=== PATIENT | male | born 1985 | race Caucasian/White ===

== ENCOUNTER 2019-09-21 18:44 | Emergency (ER) | payer OTHER, SELFPAY ==
--- NOTE | ~2019-09-21 | CT_ITS ---
EXAMINATION: CT cervical spine wo con DATE: 09/21/2019 21:56 INDICATION: Transient alteration of awareness TECHNIQUE: Computed tomography (CT) of the cervical spine was performed without intravenous contrast. The dose-length product (DLP) was 446.93 mGy-cm. Automated exposure control and iterative reconstruc tion technique were employed. COMPARISON: None FINDINGS: There is no fracture, dislocation, or subluxation. The vertebral body heights, alignment, a nd intervertebral disc spaces are normal. The paravertebral soft tissues are unremarkable. The odonto id is intact. IMPRESSION: 1. Normal cervical spine. Reviewed, dictated and finalized at location A. IMPRESSION: 1. Normal cervical spine.
--- NOTE | ~2019-09-21 | CT_ITS ---
EXAMINATION: CT brain wo con INDICATION: Transient alteration of awareness COMPARISON: None TECHNIQUE: Standard unenhanced head CT. The dose-length product (DLP) was 605.33 mGy-cm. The mA was a djusted according to patient size. Iterative reconstruction technique was employed. FINDINGS: There is no intracranial hemorrhage, acute infarction, or abnormal mass lesion. The ventric les are normal. There is no abnormal mass effect or midline shift. The carrion-white matter differentiat ion is normal. The basal cisterns are patent. The orbits are normal. The paranasal sinuses, mastoids and calvarium are normal. IMPRESSION: 1. No acute intracranial abnormality. Reviewed, dictated and finalized at location A.
[2019-09-21 19:19] VITALS: BP 153/89; PULSE 115; RESP 19; TEMP 36.6; O2SAT 100
--- NOTE | 2019-09-21 19:22 | ECG_ITS ---
Measurements Intervals [place] Rate: 101 P: 54 MT: 148 QRS: 64 QRSD: 85 T: 44 QT: 327 QTc: 426 Interpretive Statements SINUS TACHYCARDIA MINIMAL Q WAVES- DIFFUSE LEADS BORDERLINE ECG Electronically Signed On 09-22-2019 7:32:52 CDT by Charles Haque D.O.
[2019-09-21 19:51] LABS: Basophils Percent Auto 0.4 % (0.2-1.2); Eosinophils Absolute Auto 0.3 K/mm3 (0-0.3); Eosinophils Percent Auto 3.2 % (0-4.4); Hematocrit 44.9 % (42.0-52.0); Hemoglobin 15.1 g/dL (14.0-18.0); Immature Granulocyte Absolute 0.02 K/mm3 (0.00-0.031); Immature Granulocyte Percent A 0.2 % (0-0.5); Lymphocytes Percent Auto 30.6 % (18.3-44.2); Mean Corpuscular HGB Conc 33.6 g/dl (32-36); Mean Corpuscular Hemoglobin 29.9 pg (26-34); Mean Corpuscular Volume 88.9 fl (80-100); Monocytes Absolute Auto 0.8 K/mm3 (0.1-0.6); Monocytes Percent Auto 8.4 % (2.6-8.5); Neutrophils Absolute Auto 5.2 K/mm3 (1.3-6.7); Neutrophils Percent Auto 57.2 % (45.5-73.1); Platelet Count Result 387 k/mm3 (150-375); Red Blood Count 5.05 M/mm3 (4.6-6.20); Red Cell Distribution Width 12.9 % (11.5-14.5); White Blood Count 9.2 K/mm3 (4.5-10.0)
[2019-09-21 19:55] LABS: Add Urine Microscopic? YES; Appearance Urine Clear (Clear); Bacteria Urine Trace /hpf; Bilirubin Urine Negative (Negative); Blood Urine Negative (Negative); Color Urine Yellow (Yellow); Glucose Urine UA Negative (Negative); Ketones Urine Negative (Negative); Leukocyte Esterase Ur Negative LEU/UL (Negative); Mucus Urine Few /lpf; Nitrate Urine Negative (Negative); Protein Urine 1+ mg/dL (Negative); RBC Urine 0-2 /hpf (0-2); Specific Grav Ur 1.031 (1.001-1.035); Squamous Epithelial Cell Urine Rare /hpf (Few); Urobilinogen Urine Negative mg/dL (<2.0); WBC Urine 0-3 /hpf
[2019-09-21 20:03] LABS: Blood Urea Nitrogen 14 mg/dL (9-20); Calcium 8.7 mg/dL (8.4-10.2); Carbon Dioxide 28 mmol/L (22-30); Chloride 103 mmol/L (98-107); Estimated CRCL calculation 99 ml/min; Estimated Glomerular Filt Rate > 60; Glucose 63 mg/dL (75-110); Sodium 140 mmol/L (137-145)
[2019-09-21 21:00] VITALS: BP 126/99; BP 139/90; BP 140/92; PULSE 102; PULSE 104; PULSE 105
--- NOTE | 2019-09-21 21:05 | PC.NURSE ---
pt presents to ER with c/o syncopal episodes yesterday. pt states he was at work yesterday when he started to feel over heated. pt reports he does not remember driving home. s/o at bedside, states pt came home and was not acting himself, eating foods he typically wouldn't. pt states he remembers going to the bathroom to shower but states he woke up on the floor, states it was not witnessed. pt aaox4, no neurological deficit noted, answering questions appropriately. pt c/o migraine, took Advil CAMP BOSS. ambulatory with steady gait.
--- NOTE | 2019-09-21 21:23 | ED.GENADULT ---
HPI - General Adult General Chief complaint: Syncope Stated complaint: SYNCOPE YESTERDAY Time Seen by Provider: 09/21/19 21:03 History of Present Illness HPI narrative: Patient is a 34 y/o male complaining of confusion and passing out last night. He states that he came back from work feeling confused. He went to bathroom and woke up on the floor. He states that he may be out for 2 hours hours. He has some mild headache currently but feels well otherwise. He denies any fever, chills, vomiting or any focal weakness/numbness. He denies drinking or using illicit drugs. Related Data Home Medications Medication Instructions Recorded Confirmed No Home Medications 09/21/19 09/21/19 Allergies Allergy/AdvReac Type Severity Reaction Status Date / Time No Known Allergies Allergy Verified 09/21/19 21:01 Review of Systems Constitutional: Constitutional: Denies chills, Denies fever(s), Denies headache(s) and Denies weakness Eyes: Eyes: Denies blurry vision ENT: Denies headache(s) and Denies neck pain Cardiovascular: Cardiovascular: Denies chest pain and Denies dyspnea Respiratory: Respiratory: Denies cough and Denies dyspnea Gastrointestinal: Gastrointestinal: Denies abdominal pain, Denies diarrhea, Denies nausea and Denies vomiting Genitourinary: Genitourinary: Denies hematuria and Denies dysuria Musculoskeletal: Musculoskeletal: Denies back pain and Denies neck pain Neurologic: Reports as per HPI, Reports headache(s), Denies focal weakness and Denies weakness PMF Social History Social History Gender identity (if verbalized by the patient): Male Exam Const: General: no acute distress and well developed Orientation/consciousness: oriented to person, oriented to place, oriented to time and patient oriented x3 HENMT: Head: normocephalic Ears: external ears normal General nose exam: Normal external nose present Eyes: General: appearance normal, both eyes and all related structures Conjunctivae: conjunctivae normal Neck: Neck: normal visual inspection and full ROM Chest: Chest palpation & inspection: normal inspection of the chest and no tenderness Resp: Effort & Inspection: normal respiratory effort Auscultation: clear to auscultation bilaterally Cardio: Rate: tachycardic Rhythm: regular rhythm GI: GI Palp: No abdominal tenderness and Yes Soft to palpation Skin: General skin exam: normal color and turgor normal Neuro: General: oriented to person, oriented to place, oriented to time and patient oriented x3 Cranial nerves: Yes CN's II-XII intact bilaterally Cognition (Neuro): normal cognition Speech: normal speech Motor exam (neuro): 5/5 motor strength present throughout Sensory Exam: normal sensation Coordination: [id number] test normal Extrem: General: normal to inspection, full ROM and no pedal edema Psych: Appearance: grossly normal Mental Status: mental status grossly normal Affect: normal affect Course Vital Signs Vital signs: Vital Signs Temperature 36.6 C 09/21/19 19:19 Pulse Rate 115 H 09/21/19 19:19 Respiratory Rate 19 09/21/19 19:19 Blood Pressure 153/89 H 09/21/19 19:19 Pulse Oximetry 100 09/21/19 19:19 Temperature 36.8 C 09/21/19 22:44 Pulse Rate 99 09/21/19 22:44 Respiratory Rate 18 09/21/19 22:44 Blood Pressure 115/71 09/21/19 22:44 Pulse Oximetry 98 09/21/19 22:44 Medical Decision Making Vital Signs Vital Signs: Vital Signs Temperature 36.6 C 09/21/19 19:19 Pulse Rate 115 H 09/21/19 19:19 Respiratory Rate 19 09/21/19 19:19 Blood Pressure 153/89 H 09/21/19 19:19 Pulse Oximetry 100 09/21/19 19:19 Temperature 36.8 C 09/21/19 22:44 Pulse Rate 99 09/21/19 22:44 Respiratory Rate 18 09/21/19 22:44 Blood Pressure 115/71 09/21/19 22:44 Pulse Oximetry 98 09/21/19 22:44 Lab Data Result diagrams: 09/21/19 19:28 09/21/19 19:28
[2019-09-21 21:53] LABS: Barbiturate Screen Urine Negative (Negative); Benzodiazepines Screen Urine Negative (Negative)
[2019-09-21 22:03] LABS: Cannabinoid Screen Urine Negative (Negative); Cocaine Screen Urine Negative (Negative); Methadone Screen Urine Negative (Negative); Opiate Screen Urine Negative (Negative); Phencyclidine Screen Urine Negative (Negative)
[2019-09-21 22:21] LABS: Amphetamine Screen Urine Positive (Negative)
[2019-09-21 22:44] VITALS: BP 115/71; PULSE 99; RESP 18; TEMP 36.8; O2SAT 98
== END 2019-09-21 22:45 | disposition home or self-care (01) ==
PROVIDERS: Emergency Medicine; Emergency Provider Emergency Medicine
DX: F15.10 Other stimulant abuse, uncomplicated (principal); R41.82 Altered mental status, unspecified; R55 Syncope and collapse
CPT/HCPCS: 36415; 70450; 72125; 80048; 80307; 81001; 85025; 93005; 99284

== ENCOUNTER 2020-04-19 03:12 | Emergency (ER) | payer OTHER, SELFPAY ==
[2020-04-19] VITALS (9 sets, daily range): BP systolic 100–163; BP diastolic 61–103; PULSE 79–96; RESP 15–27; TEMP 37.2; O2SAT 96–100
--- NOTE | 2020-04-19 03:22 | ED.ALLEREA ---
HPI - Allergic Reaction General Chief complaint: Allergic Reaction Stated complaint: allergic reaction Time Seen by Provider: 04/19/20 03:22 History of Present Illness HPI narrative: 36 yo male with h/o IV drug abuse presents to the ED for an allergic reaction. About 45 minutes before arrival here he had rapid onset of pruritic rash and throat swelling. He reports that the rash seems to be located in all the places that he used to inject. He has not used any drugs in 14 days. He noted that his voice changed due to the swelling as well. He received 0.5 mg of EPI IM and 50 mg of benadryl IV per EMS. He says that he is feeling much better. He continues to have a rash and fullness in his throat. No SOB. The only new exposure he can think of is new shampoo. Related Data Allergies Allergy/AdvReac Type Severity Reaction Status Date / Time No Known Allergies Allergy Verified 04/22/20 01:54 Review of Systems Review of Systems: All systems reviewed & are unremarkable except as noted in HPI and below Constitutional: Constitutional: Denies fever(s) Eyes: Eyes: Reports no additional eye complaints ENT: Reports sore throat Cardiovascular: Cardiovascular: Denies chest pain Respiratory: Respiratory: Reports dyspnea Gastrointestinal: Gastrointestinal: Denies nausea Neurologic: Reports dizziness and Denies weakness Allergic/Immunologic: Allergic/Immunologic: Denies lip swelling, Reports throat swelling and Denies tongue swelling PMFSH Social History Social History Substance use: former Substance use type: amphetamines and IV drugs Gender identity (if verbalized by the patient): Male Exam Const: General: no acute distress and alert Orientation/consciousness: patient oriented x3 HENMT: Head: normal to inspection Mouth: Yes lip normal Other: mild tonsillar enlargement. No stridor Resp: Effort & Inspection: normal respiratory effort Auscultation: clear to auscultation bilaterally Cardio: Rate: regular rate Rhythm: regular rhythm GI: GI Palp: Yes Soft to palpation and No Tenderness to palpation present (GI) Skin: Other: hyperemic edematous rash to right hand and forearm. Scatter patches of similar rash in other locations on upper body. No involvement of face or scalp. Neuro: General: patient oriented x3, moves all extremities, no focal motor deficits and CN's II-XI intact bilaterally Speech: normal speech Psych: Affect: Anxious affect present Course Course Emergency Course: No progression in symptoms. Increased swelling in right arm appears due to IV infiltration. Vital Signs Vital signs: Vital Signs Pulse Rate 96 04/19/20 03:18 Respiratory Rate 15 04/19/20 03:18 Blood Pressure 163/103 H 04/19/20 03:18 Pulse Oximetry 97 04/19/20 03:18 Temperature 37.2 C 04/19/20 03:35 Pulse Rate 84 04/19/20 06:15 Respiratory Rate 18 04/19/20 06:15 Blood Pressure 100/62 04/19/20 06:15 Pulse Oximetry 96 04/19/20 06:15 MDM - Allergic Reaction Differential Diagnosis Differential diagnosis: Likely anaphylaxis, allergic reaction, contact dermatitis and urticaria Medical Records Attestation: I reviewed the patient's medical records. Lab Data Attestation: I reviewed the patient's lab results. Labs: Strep Screen Presumptive Negative *(Reference Range: Negative)* Critical Care Time Critical Care Time Critical Care Time: Yes Total Critical Care Time: 45 Discharge Plan Discharge Clinical Impression: Allergic reaction Patient Disposition: Home, Self-Care Condition: Stable Instructions: Anaphylaxis (ED) Prescriptions: New prednisone 50 mg tablet 50 mg PO DAILY Qty: 4 RF: 0 diphenhydramine HCl [Benadryl Allergy] 25 mg tablet 50 mg PO Q6H PRN (Reason: allergic reaction) Qty: 60 RF: 0 Follow-up/Referrals: Trini Martins MD [Physician] - [facility]
[2020-04-19] MEDS: DEXAMETHASONE SOD PHOS INJ 4 MG/ML VIAL 10 MG IV PUSH (03:27)
[2020-04-19] MEDS: SODIUM CHLORIDE 0.9% IV 1,000 ML 999 ML IV CONT (03:27)
[2020-04-19] MEDS: FAMOTIDINE 20 MG/2 ML VIAL IV PUSH (03:29)
--- NOTE | 2020-04-19 04:28 | PC.NURSE ---
Note redness has decreased to right hand and forearm. The right arm is swollen at the elbow and bend of elbow, and pt states is somewhat painful with arm flexion. States it's betting bruised to inner aspect of arm but this not noted per this RN. Pt given ice to swollen area at elbow; Dr. Sousa made aware.
--- NOTE | 2020-04-19 05:32 | PC.NURSE ---
IV dc'd from pt's right arm where swelling is. Swelling appears to have gone down somewhat with ice at this time. 6 arline wrap applied to right arm to help reduce swelling. Pt also instructed to keep right arm elevated. Pt drowsy, falls asleep but awakens easily. Pt states throat feels better and is not itching. Note that the redness to areas previously is gone.
== END 2020-04-19 07:02 | disposition home or self-care (01) ==
PROVIDERS: Emergency Provider Emergency Medicine
DX: T78.40XA Allergy, unspecified, initial encounter (principal)
CPT/HCPCS: 87081; 87880; 96361; 96374; 96375; 99284; J1100; J7030

== ENCOUNTER 2020-04-21 18:23 | Emergency (ER) | payer OTHER, SELFPAY ==
[2020-04-21 18:26] VITALS: BP 145/91; PULSE 101; RESP 18; TEMP 36.1; O2SAT 100
[2020-04-21 19:05] LABS: Basophils Percent Auto 0.3 % (0.2-1.2); Eosinophils Absolute Auto 0.1 K/mm3 (0-0.3); Eosinophils Percent Auto 0.6 % (0-4.4); Hematocrit 44.9 % (42.0-52.0); Hemoglobin 15.6 g/dL (14.0-18.0); Immature Granulocyte Percent A 0.7 % (0-0.5); Lymphocytes Absolute Auto 4.56 K/mm3 (0.9-3.2); Lymphocytes Percent Auto 33.2 % (18.3-44.2); Mean Corpuscular HGB Conc 34.7 g/dl (32-36); Mean Corpuscular Hemoglobin 30.8 pg (26-34); Mean Corpuscular Volume 88.7 fl (80-100); Mean Platelet Volume 9.1 fl (7.4-10.4); Monocytes Absolute Auto 1.5 K/mm3 (0.1-0.6); Monocytes Percent Auto 10.9 % (2.6-8.5); Neutrophils Absolute Auto 7.5 K/mm3 (1.3-6.7); Neutrophils Percent Auto 54.3 % (45.5-73.1); Platelet Count Result 337 k/mm3 (150-375); Red Blood Count 5.06 M/mm3 (4.6-6.20); Red Cell Distribution Width 13.2 % (11.5-14.5); White Blood Count 13.7 K/mm3 (4.5-10.0)
[2020-04-21 19:18] LABS: Alanine Aminotransferase 110 U/L (4-50); Alkaline Phosphatase 89 U/L (38-126); Anion Gap 6 mmol/L (8-16); Aspartate Amino Transferase 46 U/L (17-59); Bilirubin,Total 0.4 mg/dL (0.2-1.3); Blood Urea Nitrogen 14 mg/dL (9-20); Carbon Dioxide 30 mmol/L (22-30); Chloride 105 mmol/L (98-107); Estimated CRCL calculation 124 ml/min; Estimated Glomerular Filt Rate > 60; Glucose 100 mg/dL (75-110); Potassium 3.2 mmol/L (3.4-5.0); Sodium 141 mmol/L (137-145)
[2020-04-21 22:37] LABS: Add Urine Microscopic? YES; Appearance Urine Clear (Clear); Bilirubin Urine Negative (Negative); Blood Urine Negative (Negative); Color Urine Yellow (Yellow); Glucose Urine UA Negative (Negative); Ketones Urine Negative (Negative); Leukocyte Esterase Ur Negative LEU/UL (Negative); Mucus Urine Rare /lpf; Nitrate Urine Negative (Negative); Protein Urine Negative (Negative); RBC Urine 0-2 /hpf (0-2); WBC Urine 0-3 /hpf
[2020-04-21 22:41] VITALS: BP 123/86; PULSE 88; RESP 12; O2SAT 98
[2020-04-21 22:57] LABS: Amphetamine Screen Urine Positive (Negative); Barbiturate Screen Urine Negative (Negative); Benzodiazepines Screen Urine Negative (Negative); Cannabinoid Screen Urine Negative (Negative); Cocaine Screen Urine Negative (Negative); Methadone Screen Urine Negative (Negative); Opiate Screen Urine Negative (Negative); Phencyclidine Screen Urine Negative (Negative)
--- NOTE | 2020-04-21 23:29 | ECG_ITS ---
Measurements Intervals [place] Rate: 100 P: 45 LA: 152 QRS: 48 QRSD: 91 T: 32 QT: 339 QTc: 439 Interpretive Statements SINUS TACHYCARDIA EARLY PRECORDIAL R/S TRANSITION BORDERLINE ECG Electronically Signed On 04-22-2020 8:02:04 SASH CLAMP OPERATOR by Charles Haque D.O.
[2020-04-21 23:40] VITALS: BP 128/85; PULSE 95; RESP 17; O2SAT 99
[2020-04-22 00:30] VITALS: BP 137/96; PULSE 101; RESP 19; O2SAT 98
[2020-04-22] MEDS: SODIUM CHLORIDE 0.9% IV 1,000 ML 999 ML IV CONT (00:45)
--- NOTE | 2020-04-22 01:31 | ED.GENADULT ---
HPI - General Adult General Chief complaint: Dizziness Stated complaint: altered taste, dizzy Time Seen by Provider: 04/22/20 00:12 History of Present Illness HPI narrative: Patient is a 35-year-old gentleman who presents the emergency department with chief complaint of dizziness. Patient reports that he was seen in the emergency department yesterday for an allergic reaction patient states has been taking Benadryl and has been taking steroids. The patient states that he has a metallic taste in his mouth and states that today he felt lightheaded and felt as though he was extremely dry. Patient denies chest pain denies shortness of breath stated that he had urticaria yesterday and stated that the urticaria is gone. The patient does report that he has a history of methamphetamine abuse but states that he last used approximately 20 days ago. Related Data Allergies Allergy/AdvReac Type Severity Reaction Status Date / Time No Known Allergies Allergy Verified 04/19/20 03:47 Review of Systems Review of Systems: Narrative: A 10 system review of systems was completed on the patient and is negative except for what is stated in the HPI. Nursing and ancillary documentation was reviewed. [facility] Social History Social History Substance use: former Substance use type: amphetamines and IV drugs Gender identity (if verbalized by the patient): Male Exam Narrative: Exam Narrative: GENERAL: Well-appearing, well-nourished, and in no acute distress. HEAD: Normocephalic, atraumatic. EYES: PERRLA and EOMI. ENT: Nares clear, no rhinorrhea or epistaxis. Mucous membranes moist. NECK: Supple. CHEST: Clear to auscultation. No respiratory distress. HEART: Regular rate and rhythm. No murmur heard. Normal peripheral pulses. ABDOMEN: Soft, nontender, nondistended, normal active bowel sounds. EXTREMITIES: Normal range of motion. No edema. SKIN: Warm, dry, no rash. NEURO: No focal deficits. Alert and oriented x3. PSYCH: Normal mood and affect. Course Course Emergency Course: Patient received IV fluids in the emergency department is feeling much better at this time Vital Signs Vital signs: Vital Signs Temperature 36.1 C L 04/21/20 18:26 Pulse Rate 101 H 04/21/20 18:26 Respiratory Rate 18 04/21/20 18:26 Blood Pressure 145/91 H 04/21/20 18:26 Pulse Oximetry 100 04/21/20 18:26 Temperature 36.1 C L 04/21/20 18:26 Pulse Rate 88 04/21/20 22:41 Respiratory Rate 12 04/21/20 22:41 Blood Pressure 123/86 04/21/20 22:41 Pulse Oximetry 98 04/21/20 22:41 Medical Decision Making Vital Signs Vital Signs: Vital Signs Temperature 36.1 C L 04/21/20 18:26 Pulse Rate 101 H 04/21/20 18:26 Respiratory Rate 18 04/21/20 18:26 Blood Pressure 145/91 H 04/21/20 18:26 Pulse Oximetry 100 04/21/20 18:26 Temperature 36.1 C L 04/21/20 18:26 Pulse Rate 88 04/21/20 22:41 Respiratory Rate 12 04/21/20 22:41 Blood Pressure 123/86 04/21/20 22:41 Pulse Oximetry 98 04/21/20 22:41 Lab Data Result diagrams: 04/21/20 18:42 04/21/20 18:42 Labs: Lab Results 04/21/20 04/21/20 04/21/20 Range/Units 18:42 18:42 22:27 WBC 13.7 H (4.5-10.0) K/mm3 RBC 5.06 (4.6-6.20) M/mm3 Hgb 15.6 (14.0-18.0) g/dL Hct 44.9 (42.0-52.0) % MCV 88.7 (80-100) fl MCH 30.8 (26-34) pg MCHC 34.7 (32-36) g/dl RDW 13.2 (11.5-14.5) % Plt Count 337 (150-375) k/mm3 MPV 9.1 (7.4-10.4) fl Immature Gran % (Auto) 0.7 H (0-0.5) % Neut % (Auto) 54.3 (45.5-73.1) % Lymph % (Auto) 33.2 (18.3-44.2) % Gila % (Auto) 10.9 H (2.6-8.5) % Eos % (Auto) 0.6 (0-4.4) % Baso % (Auto) 0.3 (0.2-1.2) % Lymph # (Auto) 4.56 H (0.9-3.2) K/mm3 Gila # (Auto) 1.5 H (0.1-0.6) K/mm3 Eos # (Auto) 0.1 (0-0.3) K/mm3 Baso # (Auto) 0.0 (0.0-0.1) K/mm3 Abs Immat Gran (auto) 0.1
[2020-04-22 01:40] VITALS: BP 130/78; PULSE 100; RESP 20; O2SAT 99
== END 2020-04-22 01:40 | disposition home or self-care (01) ==
PROVIDERS: Emergency Medicine; Emergency Provider Emergency Medicine
DX: R42 Dizziness and giddiness (principal); E86.0 Dehydration; T50.905A Adverse effect of unspecified drugs, medicaments and biological substances, initial encounter
CPT/HCPCS: 36415; 80053; 80307; 81001; 85025; 93005; 96360; 99283; J7030

== ENCOUNTER 2020-05-08 18:32 | Emergency (ER) | payer OTHER, SELFPAY ==
[2020-05-08 18:34] VITALS: BP 144/94; PULSE 97; RESP 20; TEMP 36.2; O2SAT 97
[2020-05-08 18:48] VITALS: BP 144/94; PULSE 100; RESP 18; TEMP 36.2; O2SAT 100
[2020-05-08] MEDS: EPINEPHrine HCL INJ 1 MG/ML AMPUL 0.3 MG IM (18:57)
[2020-05-08] MEDS: methylPREDNISolone SOD SUCC 125 MG VIAL IV PUSH (18:57)
[2020-05-08 19:14] VITALS: BP 130/93; PULSE 106; RESP 24; O2SAT 100
--- NOTE | 2020-05-08 20:33 | ED.GENADULT ---
HPI - General Adult General Chief complaint: Allergic Reaction <Theodora Morales PA-C - Last Filed: 05/08/20 20:36> Stated complaint: allergic reaction <Theodora Morales PA-C - Last Filed: 05/08/20 20:36> Time Seen by Provider: 05/08/20 18:40 <Theodora Morales PA-C - Last Filed: 05/08/20 20:36> Source: patient <ADINA May Last Filed: 05/08/20 20:36> Mode of arrival: ambulatory <ADINA May Last Filed: 05/08/20 20:36> Limitations: no limitations <Theodora Morales PA-C - Last Filed: 05/08/20 20:36> History of Present Illness HPI narrative: Patient presents with chief complaint of hives to his arms and feeling like his throat is swelling after eating peanut butter. Patient states that he chewed 3 Benadryl prior to arrival. Patient is able to handle his own secretions. Patient states that he feels that his voice sounds off. Patient states that he believes he has had a reaction to peanut butter in the past but was unsure. Patient does not have a EpiPen. He denies any chest pain, shortness of breath, nausea, vomiting. <Theodora Morales PA-C - Last Filed: 05/08/20 20:36> Related Data Allergies/adverse reactions: Allergies Allergy/AdvReac Type Severity Reaction Status Date / Time No Known Allergies Allergy Verified 05/08/20 18:50 <Theodora Morales PA-C - Last Filed: 05/08/20 20:36> Review of Systems Review of Systems: Narrative: CONSTITUTIONAL: Denies fever, chills, or sweats. EYES: Denies visual changes, redness, or discharge. ENT: Reports itchy throat denies rhinorrhea, congestion, or otalgia. CARDIOVASCULAR: Denies chest pain, palpitations, or edema. RESPIRATORY: Denies cough or dyspnea. GASTROINTESTINAL: Denies abdominal pain, nausea, vomiting, or diarrhea. GENITOURINARY: Denies dysuria or hematuria. SKIN: Reports hives MUSCULOSKELETAL: Denies back pain, joint pain, or myalgia. NEUROLOGIC: Denies headache, numbness, dizziness, or weakness. PSYCHIATRIC: Denies anxiety or depression. <Theodora Morales PA-C - Last Filed: 05/08/20 20:36> PMFSH Social History Social History: Social History Substance use: former Substance use type: amphetamines and IV drugs Gender identity (if verbalized by the patient): Male <Theodora Morales PA-C - Last Filed: 05/08/20 20:36> Exam Narrative: Exam Narrative: GENERAL: Well-appearing, well-nourished, and in no acute distress. HEAD: Normocephalic, atraumatic. EYES: PERRLA and EOMI. ENT: Nares clear, no rhinorrhea or epistaxis. Mucous membranes moist. Oropharynx with mild erythema without tonsillar hypertrophy exudate or other lesions. Bilateral TMs pearly carrion nonbulging NECK: Supple. No adenopathy or masses. No carotid bruits or JVD CHEST: Clear to auscultation. No respiratory distress. No wheezes rales or rhonchi HEART: Regular rate and rhythm. No murmur heard. Normal peripheral pulses. EXTREMITIES: Has noted to patient's right arm. Normal range of motion. No edema. SKIN: Warm, dry, no rash. NEURO: No focal deficits. Alert and oriented x3. PSYCH: Normal mood and affect. <ADINA May Last Filed: 05/08/20 20:36> Course Vital Signs Vital signs: Vital Signs Temperature 36.2 C L 05/08/20 18:34 Pulse Rate 97 05/08/20 18:34 Respiratory Rate 20 05/08/20 18:34 Blood Pressure 144/94 H 05/08/20 18:34 Pulse Oximetry 97 05/08/20 18:34 Temperature 36.2 C L 05/08/20 18:48 Pulse Rate 89 05/08/20 20:57 Respiratory Rate 20 05/08/20 20:57 Blood Pressure 132/88 05/08/20 20:57 Pulse Oximetry 98 05/08/20 20:57 <Theodora Morales PA-C - Last Filed: 05/08/20 20:36> Vital Signs Temperature 36.2 C L 05/08/20 18:34 Pulse Rate 97 05/08/20 18:34 Respiratory Rate 20 05/08/20 18:34 Blood Pressure 144/94 H 05/08/20 18:34 Pulse Oximetry 97 05/08/20 18:34 Temperature 36.2 C L 05/08/20 18
[2020-05-08 20:57] VITALS: BP 132/88; PULSE 89; RESP 20; O2SAT 98
== END 2020-05-08 21:07 | disposition home or self-care (01) ==
PROVIDERS: Emergency Provider Emergency Medicine; PCP Emergency Medicine
DX: T78.40XA Allergy, unspecified, initial encounter (principal)
CPT/HCPCS: 96372; 96374; 99284; J0171; J2930

== ENCOUNTER 2020-06-01 00:31 | Emergency (ER) | payer OTHER, SELFPAY ==
[2020-06-01 00:35] VITALS: BP 162/103; PULSE 101; RESP 18; TEMP 35.5; O2SAT 100
[2020-06-01 01:00] VITALS: BP 139/101; PULSE 83; RESP 18; O2SAT 95
--- NOTE | 2020-06-01 01:15 | ED.ALLEREA ---
HPI - Allergic Reaction General Chief complaint: Allergic Reaction Stated complaint: allergic reaction Time Seen by Provider: 06/01/20 00:43 Source: patient Mode of arrival: ambulatory Limitations: no limitations History of Present Illness HPI narrative: 35-year-old male Patient presents for evaluation of what he presumes to be an allergic reaction of some sort Patient indicates that he has been having issues with rashes and itching for a month or longer, he has been seen once or twice in ERs, did take a steroid taper initially a few weeks ago and is taking Benadryl ever since, has followed up with Dr. Schumacher, but has been unable to get an appointment to see an it support analyst because they are all out of his network Apart from that he was also just started recently on losartan for modestly high blood pressures Night he states that he took one of the losartan and that his forearms then felt swollen and tight his throat felt tight and his eyes felt funny Notably absent are rash, pruritus, wheezing, shortness of breath or stridor Related Data Allergies Allergy/AdvReac Type Severity Reaction Status Date / Time No Known Allergies Allergy Verified 06/01/20 00:37 Review of Systems Review of Systems: All systems reviewed & are unremarkable except as noted in HPI and below Constitutional: Constitutional: Reports no additional constitutional complaints, Denies chills, Denies fever(s) and Denies headache(s) Eyes: Eyes: Denies change in vision Comments: Eyes feel swollen and funny ENT: Reports dysphagia, Denies headache(s) and Denies sore throat Cardiovascular: Cardiovascular: Denies chest pain and Denies dyspnea Respiratory: Respiratory: Denies cough and Denies dyspnea Gastrointestinal: Gastrointestinal: Denies abdominal pain, Denies diarrhea and Denies vomiting Genitourinary: Genitourinary: Denies dysuria and Denies urinary frequency Musculoskeletal: Musculoskeletal: Reports myalgias, Denies deformity, Reports arthralgias, Reports joint swelling and Denies numbness Integumentary/Breasts: Skin/Breast: Denies pruritus, Denies rash and Denies wounds Neurologic: Denies headache(s), Denies focal weakness and Denies numbness Psychiatric: Psychiatric: Reports no additional psychiatric complaints Endocrine: Endocrine: Reports no additional endocrine complaints Hematologic/Lymphatic: Hematologic/Lymphatic: Reports no additional hematologic/lymphatic complaints Allergic/Immunologic: Allergic/Immunologic: Reports no additional allergic/immunologic complaints [facility] Social History Social History Substance use: former Substance use type: amphetamines and IV drugs Gender identity (if verbalized by the patient): Male Sexual Orientation (if Verbalized by the Patient): Straight or Heterosexual Exam Const: General: cooperative, no acute distress and alert Orientation/consciousness: patient oriented x3 (alert) HENMT: Head: normal to inspection, normocephalic and atraumatic Ears: external ears normal General nose exam: no epistaxis Mouth: Yes Normal oral and palatal mucosa present and Yes moist mucous membranes Other: No swelling Eyes: Conjunctivae: conjunctivae normal EOM: EOMs intact bilaterally Other: No periorbital swelling Neck: Neck: normal visual inspection, supple and no JVD Other: No hoarseness or stridor Resp: Effort & Inspection: normal respiratory effort and not labored Auscultation: no wheezes and other (BS =) Cardio: Rate: regular rate Rhythm: regular rhythm Skin: General skin exam: normal color and no rashes or lesions noted Rashes: no rashes Neuro: General: patient oriented x3 (alert) and moves all extremities Speech: normal speech Extrem: General: normal to inspection and no pedal edema Other: Hands do look maybe slightly puffy nothing extremely notable at all no rashes no pain with flexion or extensions Psych: Affect: normal affect
[2020-06-01 01:41] LABS: Basophils Percent Auto 0.4 % (0.2-1.2); Eosinophils Absolute Auto 0.4 K/mm3 (0-0.3); Eosinophils Percent Auto 4.2 % (0-4.4); Hematocrit 44.2 % (42.0-52.0); Hemoglobin 15.3 g/dL (14.0-18.0); Immature Granulocyte Absolute 0.04 K/mm3 (0.00-0.031); Immature Granulocyte Percent A 0.4 % (0-0.5); Lymphocytes Absolute Auto 3.06 K/mm3 (0.9-3.2); Lymphocytes Percent Auto 31.4 % (18.3-44.2); Mean Corpuscular HGB Conc 34.6 g/dl (32-36); Mean Corpuscular Hemoglobin 30.3 pg (26-34); Mean Corpuscular Volume 87.5 fl (80-100); Mean Platelet Volume 9.1 fl (7.4-10.4); Monocytes Percent Auto 9.9 % (2.6-8.5); Neutrophils Absolute Auto 5.2 K/mm3 (1.3-6.7); Neutrophils Percent Auto 53.7 % (45.5-73.1); Platelet Count Result 315 k/mm3 (150-375); Red Blood Count 5.05 M/mm3 (4.6-6.20); White Blood Count 9.7 K/mm3 (4.5-10.0)
[2020-06-01] MEDS: diphenhydrAMINE HCl INJ 50 MG/ML VIAL IV PUSH (01:44)
[2020-06-01 01:56] LABS: Anion Gap 7 mmol/L (8-16); Blood Urea Nitrogen 19 mg/dL (9-20); Carbon Dioxide 26 mmol/L (22-30); Chloride 106 mmol/L (98-107); Creatine Kinase 66 U/L (55-170); Estimated CRCL calculation 102 ml/min; Estimated Glomerular Filt Rate > 60; Glucose 105 mg/dL (75-110); Potassium 4.1 mmol/L (3.4-5.0); Sodium 139 mmol/L (137-145)
[2020-06-01 02:30] VITALS: BP 124/79; PULSE 84; RESP 16; O2SAT 97
[2020-06-01 03:21] LABS: Hepatitis B Surface Antigen Negative (Negative)
[2020-06-01 03:27] LABS: HAV RESULT Negative (Negative); Hepatitis B Core IgM Result Negative (Negative)
[2020-06-01 03:38] LABS: Hepatitis C Virus Antibody Negative (Negative)
== END 2020-06-01 02:32 | disposition home or self-care (01) ==
PROVIDERS: Emergency Provider Emergency Medicine; PCP Emergency Medicine
DX: I10 Essential (primary) hypertension (principal); R60.9 Edema, unspecified; Z79.899 Other long term (current) drug therapy
CPT/HCPCS: 36415; 80048; 80074; 82550; 85025; 96374; 99284; J1200

== ENCOUNTER 2020-07-05 18:18 | Emergency (ER) | payer OTHER, SELFPAY ==
--- NOTE | 2020-07-05 18:48 | ED.MALEGU ---
HPI - Male Genitourinary General Chief complaint: Urogenital-Male Stated complaint: uti Time Seen by Provider: 07/05/20 18:48 Source: patient and RN notes reviewed Mode of arrival: ambulatory Limitations: no limitations History of Present Illness HPI Narrative: 35-year-old male presents to the [facility] with complaints of burning with urination. To the clinic with his girlfriend who is also being tested. Denies any testicular swelling or pain. Denies any abdominal pain. No chest pain. No nausea vomiting or diarrhea. Denies any fevers. Related Data Home Medications Medication Instructions Recorded Confirmed fexofenadine 1 mg PO DAILY 07/05/20 07/05/20 hydrochlorothiazide 1 mg PO DAILY 07/05/20 07/05/20 losartan 1 mg PO DAILY 07/05/20 07/05/20 Allergies Allergy/AdvReac Type Severity Reaction Status Date / Time No Known Allergies Allergy Verified 07/05/20 19:10 Review of Systems Review of Systems: All systems reviewed & are unremarkable except as noted in HPI and below Constitutional: Constitutional: Reports as per HPI, Denies anorexia, Denies body ache(s), Denies chills, Denies fatigue and Denies fever(s) ENT: Reports system reviewed and no additional complaints, except as documented Cardiovascular: Cardiovascular: Reports no additional cardiovascular complaints Respiratory: Respiratory: Reports no additional respiratory complaints, Denies chest congestion and Denies cough Gastrointestinal: Gastrointestinal: Reports no additional gastrointestinal complaints and Denies abdominal pain Genitourinary: Genitourinary: Denies hematuria, Denies oliguria, Denies genital lesions, Reports genital pain (With urination), Denies penile discharge, Denies scrotal swelling, Denies testicular mass, Denies testicular pain, Denies urinary frequency, Denies urinary hesitancy, Denies urinary incontinence and Denies urinary urgency Musculoskeletal: Musculoskeletal: Reports no additional musculoskeletal complaints Integumentary/Breasts: Skin/Breast: Reports system reviewed and no additional complaints, except as docu Neurologic: Reports system reviewed and no additional complaints, except as documented Psychiatric: Psychiatric: Reports no additional psychiatric complaints [facility] Social History Social History Substance use: former Substance use type: amphetamines and IV drugs Gender identity (if verbalized by the patient): Male Comments At the time of my signature, I reviewed and agree with the nursing past medical, surgical, social, and family history. There is no relevant family history pertinent to the patient complaint. Exam Const: General: cooperative, healthy appearing, comfortable, no acute distress, well developed, alert and awake Nutritional Appearance: average body habitus Orientation/consciousness: oriented to person, oriented to place, oriented to time and patient oriented x3 Limitations: no limitations HENMT: Head: normal to inspection Mouth: Yes Normal oral and palatal mucosa present and Yes lip normal Neck: Neck: normal visual inspection and full ROM Chest: Chest palpation & inspection: normal inspection of the chest Resp: Effort & Inspection: normal respiratory effort, able to speak in complete sentences, no audible wheezes, no cough and no grunting Auscultation: clear to auscultation bilaterally GI: Inspection: normal to inspection GI Palp: No abdominal tenderness : General: No CVA tenderness Male General Exam: Yes normal external exam and Yes other (Chaperoned by Lula TOBIN) Penis: Yes normal penis and Yes circumcised Scrotum: scrotum normal, not erythematous, no masses and no scrotal swelling Testes: Testes normal Back/Spine/Pelvis: Back: no CVA tenderness Skin: General skin exam: normal color Lesions: no lesions Rashes: no rashes Neuro: General: patient oriented x3, gait normal, moves all extremities and no meningeal signs
[2020-07-05 19:07] VITALS: BP 136/87; PULSE 93; RESP 16; TEMP 36.8; O2SAT 99
== END 2020-07-05 19:26 | disposition home or self-care (01) ==
PROVIDERS: Emergency Provider Nurse Practitioner; PCP Emergency Medicine
DX: R30.0 Dysuria (principal)
CPT/HCPCS: 81003; 87491; 87591; 87661; 99213; G0463

== ENCOUNTER 2020-11-03 14:05 | Emergency (ER) | payer OTHER, SELFPAY ==
[2020-11-03 14:16] VITALS: BP 151/87; PULSE 84; RESP 16; TEMP 36.6; O2SAT 99
--- NOTE | 2020-11-03 14:33 | ED.URI ---
HPI - URI/Sore Throat General Chief Complaint: Upper Respiratory Infection Stated Complaint: sore throat/swollen lesion on tongue/headache Time Seen by Provider: 11/03/20 14:33 Source: patient Mode of arrival: ambulatory Limitations: no limitations History of Present Illness HPI Narrative: Weston Celis is a 35-year-old male with medical history of HTN and tobacco abuse, who comes to [facility] complaining of 3 to 4 days of sore throat headache feeling very tired having difficulty swallowing. Is got a sore on the side of his tongue on the left that makes it difficult for him to eat. He denies any allergies to medication but has multiple environmental allergies that has required him to carry an EpiPen. He seems relatively distraught and his blood pressure is elevated for this visit-patient has been prescribed blood pressure medication in the past and is not appear to be taking it currently Related Data Allergies Allergy/AdvReac Type Severity Reaction Status Date / Time No Known Allergies Allergy Verified 07/05/20 19:10 Review of Systems Review of Systems: CONSTITUTIONAL: Denies fever, chills, sweats. Complaining of headache and fatigue EYES: Denies visual changes, redness, discharge. ENT: Denies rhinorrhea, congestion, has sore throat, otalgia. Submandibular lymph node tenderness CARDIOVASCULAR: Denies chest pain, palpitations, edema. RESPIRATORY: Denies dyspnea, wheezing, cough GASTROINTESTINAL: Denies abdominal pain, nausea, vomiting, diarrhea. GENITOURINARY: Denies dysuria, hematuria, abnormal discharge SKIN: Denies rash or itching. NEUROLOGIC: Denies numbness, or focal weakness. PSYCHIATRIC: Denies anxiety or depression. [facility] Past Medical History Medical History (Updated 11/03/20 @ 15:04 by Melissa Bangura CNP) HTN (hypertension) Social History Social History (Updated 11/03/20 @ 14:45 by Melissa Bangura CNP) Smoking packs per day: 1 Smoking cigarettes per day: 20.0 Smoking status: Current every day smoker Substance use: former Substance use type: amphetamines and IV drugs Gender identity (if verbalized by the patient): Male Sexual Orientation (if Verbalized by the Patient): Straight or Heterosexual Comments At time of signature, I agree with nursing past medical, surgical, social and family history. There is no relevant family history pertinent to the presenting complaint. Exam Narrative: GENERAL: This is a well-nourished, well-developed patient, in mild distress. HEAD: normocephalic, atraumatic. EYESSclera clear/white. Vision is grossly intact. EARS: External ears normal, auditory canals erythematous and without drainage, TMs normal without perforation. Hearing grossly intact. NOSE: External nose normal without nasal discharge, nares without redness, has rhinorrhea. THROAT: Mucous membranes moist, posterior pharynx erythema; white sore throat to left side of tongue, tender NECK: Neck supple, tender submandibular tubular lymph nodes left greater than right CARDIOVASCULAR: Regular rate and rhythm without murmurs, gallops, or rubs. RESPIRATORY: Clear to auscultation. Breath sounds equal bilaterally. No wheezes, rales, or rhonchi. GASTROINTESTINAL: Abdomen soft, SKIN: warm, intact with no suspicious lesions or rash, good texture and turgor. NEURO: awake, alert, and oriented to person, place and time. There were no obvious focal neurologic abnormalities. Steady gait EXTREMITIES: Normal range of motion. BACK: Nontender without deformity Course Course Emergency Course: Patient comes with 3 to 4 days of symptoms of headache fatigue sore throat difficulty swallowing and feeling poorly. He is complaining of a sore on his tongue and sore throat Strep test negative rapid Covid neg- PCR sent Started on prednisone, viscous lidocaine, Zyrtec, quarantine until pcr results ontained- discussed quarantine with patient Vital Signs Vital signs: Vital Signs Temperature 97.8 F 11/03/20 14:16
[2020-11-04 21:01] LABS: SARS-CoV-2 RNA PCR Negative
== END 2020-11-03 15:11 | disposition home or self-care (01) ==
PROVIDERS: Emergency Provider Nurse Practitioner
DX: J02.9 Acute pharyngitis, unspecified (principal); Z20.828 Contact with and (suspected) exposure to other viral communicable diseases; I10 Essential (primary) hypertension; F17.210 Nicotine dependence, cigarettes, uncomplicated
CPT/HCPCS: 87081; 87426; 87880; 99213; C9803; G0463; U0003; U0005

== ENCOUNTER 2021-12-31 01:18 | Observation (INO) | payer OTHER, SELFPAY ==
[2021-12-31] VITALS (7 sets, daily range): BP systolic 126–166; BP diastolic 76–110; PULSE 50–80; RESP 18–22; TEMP 36.6–36.7; O2SAT 99–100
--- NOTE | ~2021-12-31 | CT_ITS ---
EXAMINATION: CT abdomen pelvis w con DATE: 12/31/2021 02:52 INDICATION: Right upper quadrant abdominal pain. Epigastric abdominal pain. TECHNIQUE: Computed tomography (CT) of the abdomen and pelvis was performed with 100 mL Omnipaque 350 intravenous contrast. Automated exposure control and iterative reconstruction technique were employe d. The dose-length product was 581.08 mGy-cm. COMPARISON: None. FINDINGS: The visualized portions of the lung bases demonstrate mild atelectasis. No pleural effusion . The heart size is normal. No pericardial effusion. There is a 10 mm cyst in the liver. The gallblad eli is distended and contains gallstones. The spleen, pancreas, adrenal glands, and kidneys are angelo l. There are no dilated loops of bowel. The appendix is normal. There are no pathologically enlarged lymph nodes. There is no free intraperitoneal fluid. There is a benign bone island in left femoral he ad. There is mild thoracolumbar spondylosis. There is mild chronic anterior wedging of multiple thora cic vertebral bodies. IMPRESSION: 1. Acute cholecystitis. Reviewed, dictated and finalized at location A. IMPRESSION: 1. Acute cholecystitis.
--- NOTE | ~2021-12-31 | US_ITS ---
EXAMINATION: US abdomen limited DATE: 12/31/2021 07:58 INDICATION: Right upper quadrant abdominal pain. TECHNIQUE: Multiple grayscale and Doppler ultrasound images of the abdomen were obtained. COMPARISON: CT abdomen and pelvis 12/31/2021 FINDINGS: The pancreas is obscured by bowel gas. The liver is normal. There are gallstones in the gal lbladder, which is distended. Gallbladder wall thickening is noted. There was no sonographic Velasquez s ign. The common duct is normal and measures 4 mm. IMPRESSION: 1. Distended gallbladder with gallstones and gallbladder wall thickening but no sonographic Velasquez si gn, consistent with acute cholecystitis. Reviewed, dictated and finalized at location A. IMPRESSION: 1. Distended gallbladder with gallstones and gallbladder wall thickening but no sonographic Velasquez sign, consistent with acute cholecystitis.
--- NOTE | 2021-12-31 01:57 | ED.ABDPAIN ---
HPI - Abdominal Pain General Chief Complaint: Abdominal Pain Stated Complaint: Abd pain Time Seen by Provider: 12/31/21 01:29 History of Present Illness HPI narrative: Patient with history of remote meth IVDU, no other medical problems presents with 4 days of intermittent abdominal pain, gradual onset, feels like gas pains but symptoms have not been improving over the last few days. Feels like it is more in his right upper quadrant/epigastric region and going to his back, no nausea or vomiting, no diarrhea. Worst after he eats. Related Data Allergies Allergy/AdvReac Type Severity Reaction Status Date / Time No Known Allergies Allergy Verified 12/31/21 01:23 Review of Systems Review of Systems: CONST: Chills HEENT: No sore throat C/V: No chest pain RESP: No cough GI: Reports abdominal pain : No dysuria. M/S: No joint pain. SKIN: No rash. NEURO: [No headache or focal numbness or weakness] PSYCH: [No depression] [facility] Past Medical History Medical History HTN (hypertension) Social History Social History Smoking packs per day: 1 Smoking cigarettes per day: 20.0 Years smoked: 15 Smoking pack-years: 15.00 Smoking status: Current every day smoker Tobacco type: cigarettes Alcohol intake: never Substance use: former Substance use type: amphetamines and IV drugs Has the Lack of Transportation Kept You From Medical Appointments or From Getting Medications?: No Within the Past 12 Months, Were You Worried Whether Your Food Would Run Out Before You Got Money to Buy More?: Never True What is Your Housing Situation Today?: I Have Housing Are You Worried That in the Next 2 Months, You May Not Have Your Own Housing to Live In?: Decline to Answer Do You Have Trouble Paying Your Heating Or Electricity Bill?: Decline to Answer Do You Have Trouble Paying For Medicines?: Decline to Answer Are You Currently Unemployed and Looking for Work?: Decline to Answer Highest Level of Education Completed: Trade/Vocational Certificate Do You Have Trouble With Childcare or the Care of a Family Member?: No Gender identity (if verbalized by the patient): Male Sexual Orientation (if Verbalized by the Patient): Straight or Heterosexual Spiritual care concerns: No Exam Narrative: EXAMINATION OF ORGAN SYSTEMS/BODY AREAS: Constitutional: Vital signs per nursing GENERAL: Pacing up and down the room, crying in pain HEAD: Normal with no signs of head trauma. EYES: EOMI, conjunctiva normal ENT: Hearing grossly intact LUNGS: Nonlabored breathing. HEART: [Regular rate and rhythm] ABD: [Soft], [tender to palpation right upper quadrant] EXT: Normal range of motion, normal bilateral radial and DP pulses SKIN: [No rashes or lesions.] NEURO: [Alert and oriented x 3. No gross focal sensory or strength deficits.] PSYCH: Normal affect Course Vital Signs Vital signs: Vital Signs Temperature 98.1 F 12/31/21 01:21 Pulse Rate 79 12/31/21 01:21 Respiratory Rate 20 12/31/21 01:21 Blood Pressure 153/110 H 12/31/21 01:21 Pulse Oximetry 100 12/31/21 01:21 Oxygen Delivery Room Air 12/31/21 01:21 Temperature 98.1 F 12/31/21 01:21 Pulse Rate 50 L 12/31/21 05:47 Respiratory Rate 18 12/31/21 05:11 Blood Pressure 166/108 H 12/31/21 05:11 Pulse Oximetry 100 12/31/21 05:11 Oxygen Delivery Room Air 12/31/21 01:21 MDM - Abdominal Pain MDM Narrative Medical decision making narrative: Electronic medical record was reviewed. Patient presented to the ED with complaint of [abdominal pain]. Vitals [were within acceptable limits]. Physical exam revealed [tenderness to palpation in right upper quadrant]. Based on the patient's history and physical exam, my differential includes but is not limited to [cholecystitis, pancreatitis, appendicitis]. Doubt dissection without neurovascular deficits or risk
[2021-12-31 02:12] LABS: Basophils Absolute Auto 0.1 K/mm3 (0.0-0.1); Basophils Percent Auto 0.5 % (0.2-1.2); Eosinophils Absolute Auto 0.6 K/mm3 (0-0.3); Eosinophils Percent Auto 5.8 % (0-4.4); Hematocrit 44.9 % (42.0-52.0); Hemoglobin 15.8 g/dL (14.0-18.0); Immature Granulocyte Absolute 0.02 K/mm3 (0.00-0.031); Immature Granulocyte Percent A 0.2 % (0-0.5); Lymphocytes Absolute Auto 4.11 K/mm3 (0.9-3.2); Lymphocytes Percent Auto 41.7 % (18.3-44.2); Mean Corpuscular HGB Conc 35.2 g/dl (32-36); Mean Corpuscular Hemoglobin 30.7 pg (26-34); Mean Corpuscular Volume 87.4 fl (80-100); Mean Platelet Volume 9.5 fl (7.4-10.4); Monocytes Absolute Auto 0.8 K/mm3 (0.1-0.6); Neutrophils Absolute Auto 4.3 K/mm3 (1.3-6.7); Neutrophils Percent Auto 43.8 % (45.5-73.1); Platelet Count Result 372 k/mm3 (150-375); Red Blood Count 5.14 M/mm3 (4.6-6.20); Red Cell Distribution Width 12.5 % (11.5-14.5); White Blood Count 9.9 K/mm3 (4.5-10.0)
[2021-12-31 02:24] LABS: Alanine Aminotransferase 27 U/L (6-50); Albumin Level 4.5 g/dL (3.5-5.1); Alkaline Phosphatase 110 U/L (38-126); Anion Gap 16 mmol/L (8-16); Aspartate Amino Transferase 24 U/L (17-59); Bilirubin,Total 0.4 mg/dL (0.2-1.3); Blood Urea Nitrogen 12 mg/dL (9-20); Calcium 10.1 mg/dL (8.4-10.2); Carbon Dioxide 27 mmol/L (22-30); Chloride 101 mmol/L (98-107); Estimated Glomerular Filt Rate > 60; Glucose 92 mg/dL (65-110); Lipase 164 U/L (23-300); Potassium 3.6 mmol/L (3.4-5.0); Sodium 144 mmol/L (137-145)
[2021-12-31] MEDS: MORPHINE SULFATE (*CRX) 4 MG/ML INJ IV PUSH (02:30)
[2021-12-31] MEDS: LACTATED RINGERS 1,000 ML 999 ML IV CONT (02:31)
[2021-12-31 02:47] LABS: Appearance Urine Clear (Clear); Bacteria Urine 1+ /hpf; Bilirubin Urine Negative (Negative); Blood Urine Negative (Negative); Color Urine Yellow (Yellow); Glucose Urine UA Negative (Negative); Ketones Urine Negative (Negative); Leukocyte Esterase Ur Negative LEU/UL (Negative); Mucus Urine Rare /lpf; Nitrate Urine Negative (Negative); Protein Urine Negative (Negative); RBC Urine 0-2 /hpf (0-2); Squamous Epithelial Cell Urine Rare /hpf (Few); Urobilinogen Urine 0.2 mg/dL (<2.0); WBC Urine 0-3 /hpf; pH Urine 8.5 (5.0-9.0)
[2021-12-31 02:53] LABS: Add Urine Microscopic? NO
[2021-12-31] MEDS: KETAMINE HCL (*CRX) 500 MG/10 ML VIAL 30 MG IV PUSH (03:46)
[2021-12-31] MEDS: METOCLOPRAMIDE HCL INJ 10 MG/2 ML VIAL IV PUSH (03:53)
[2021-12-31] MEDS: fentaNYL CITRATE INJ (*CRX) 100 MCG/2 ML VIAL 50 MCG IV PUSH (03:53)
[2021-12-31] MEDS: FAMOTIDINE 20 MG/2 ML VIAL IV PUSH (03:56)
--- NOTE | 2021-12-31 04:28 | PM.IMHP ---
H&P: HPI History of Present Illness Date/Time: 12/31/21 04:28 Chief Complaint: 36 years old male with past medical history of amphetamine abuse presented to the hospital with abdominal pain epigastric and right hypochondrial area severe requiring pain medication continue to be unresolved in the ER per ER physician CT scan showed probable calculous cholecystitis surgery was notified plan for ultrasound of the abdomen admit patient for IV hydration IV antibiotic pain control surgery evaluation ultrasound of the abdomen Review of Systems Review of Systems: Twelve system review was done negative except above PMFSH Past Medical History Medical History (Updated 12/31/21 @ 04:31 by Natalia Sheth MD) HTN (hypertension) Social History Social History (Updated 11/03/20 @ 14:45 by Melissa Bangura, [employer]) Smoking packs per day: 1 Smoking cigarettes per day: 20.0 Smoking status: Current every day smoker Substance use: former Substance use type: amphetamines and IV drugs Gender identity (if verbalized by the patient): Male Sexual Orientation (if Verbalized by the Patient): Straight or Heterosexual Meds Home Medications and Allergies Home Medications Medication Instructions Recorded Confirmed Type cetirizine 10 mg tablet (Zyrtec) 10 mg PO DAILY #30 tabs 11/03/20 Rx lidocaine HCl 2 % mucosal solution 13 ml mucous membrane TID PRN pain 11/03/20 Rx (Lidocaine Viscous) #100 mL prednisone 20 mg tablet 40 mg PO DAILY #10 tabs 11/03/20 Rx Allergies Allergy/AdvReac Type Severity Reaction Status Date / Time No Known Allergies Allergy Verified 12/31/21 01:23 Vital Signs Vital Signs - 24 hr 12/31/21 01:21 Temperature 98.1 F Pulse Rate 79 Respiratory Rate 20 Blood Pressure 153/110 H Pulse Oximetry 100 Oxygen Delivery Room Air Exam Narrative: GENERAL: Well appearing, well-nourished, non-toxic, in no acute distress. HEAD: Normocephalic, atraumatic. NECK: Supple. No adenopathy, no masses. RESPIRATORY: Airway patent, respirations nonlabored. Clear to auscultation bilaterally, no rales, rhonchi, wheezing. CARDIOVASCULAR: Regular rate and rhythm without murmurs, rubs, or gallops. Peripheral pulses 2+ and equal bilaterally. ABDOMINAL: Positive epigastric tenderness mild right hypochondrial tenderness MUSCULOSKELETAL: Negative edema SKIN: Warm, dry, normal color. No rashes. NEURO: A&O X3. Moves all extremities PSYCHIATRIC: Appropriate mood and affect. Normal interaction. H&P: Results Labs Labs: Short CBC 12/31/21 Range/Units 02:01 WBC 9.9 (4.5-10.0) K/mm3 Hgb 15.8 (14.0-18.0) g/dL Hct 44.9 (42.0-52.0) % Plt Count 372 (150-375) k/mm3 BMP 12/31/21 02:01 Sodium 144 Potassium 3.6 Chloride 101 Carbon Dioxide 27 BUN 12 D Creatinine 0.80 Glucose 92 Calcium 10.1 Liver Function 12/31/21 Range/Units 02:01 Total Bilirubin 0.4 (0.2-1.3) mg/dL AST 24 (17-59) U/L ALT 27 (6-50) U/L Alkaline Phosphatase 110 (38-126) U/L Albumin 4.5 (3.5-5.1) g/dL Urine 12/31/21 Range/Units 02:20 Urine Color Yellow (Yellow) Urine Appearance Clear (Clear) Urine pH 8.5 (5.0-9.0) Ur Specific [place] 1.020 (1.001-1.035) Urine Protein Negative (Negative) mg/dL Urine Glucose (UA) Negative (Negative) mg/dL Assessment and Plan Assessment and plan (1) Cholecystitis: Code(s): K81.9 - Cholecystitis, unspecified Status: Acute Assessment and Plan: Pending final CT scan reading Concern for calculous cholecystitis Pain control IV antibiotics Ultrasound of the abdomen GI consult (2) Abdominal pain: Code(s): R10.9 - Unspecified abdominal pain Status: Acute Assessment and Plan: Pain control IV fluid As above
[2021-12-31 05:17] LABS: Amphetamine Screen Urine Negative (Negative); Barbiturate Screen Urine Negative (Negative); Benzodiazepines Screen Urine Negative (Negative); Cannabinoid Screen Urine Negative (Negative); Cocaine Screen Urine Negative (Negative); Methadone Screen Urine Negative (Negative); Opiate Screen Urine Positive (Negative); Phencyclidine Screen Urine Negative (Negative)
[2021-12-31] MEDS: SODIUM CHLORIDE 0.9% IV 1,000 ML 100 ML IV CONT ×2 (05:22→17:42)
[2021-12-31 05:33] LABS: SARS-CoV-2 RNA PCR Negative
--- NOTE | 2021-12-31 05:50 | PC.NURSE ---
This patient, Weston Celis, was admitted to Medical Room 343-01. Patient/family oriented to hospital policies and general routines including ID bracelet, bed and alarms, visiting hours, pain management, procedures, bathroom and other care routines, personal items, smoking policy, room service/diet, and visiting hours. Information on how to activate the Rapid Response Team has been discussed. Patient/Family are encouraged to report perceived risks to care and to ask questions if they do not understand what they are told or what they should do.
[2021-12-31] MEDS: MORPHINE SULFATE (*CRX) 2 MG/ML INJ IV PUSH (05:56)
[2021-12-31 06:15] LABS: Basophils Absolute Auto 0.1 K/mm3 (0.0-0.1); Basophils Percent Auto 0.4 % (0.2-1.2); Eosinophils Absolute Auto 0.3 K/mm3 (0-0.3); Eosinophils Percent Auto 2.5 % (0-4.4); Hematocrit 43.9 % (42.0-52.0); Hemoglobin 15.2 g/dL (14.0-18.0); Immature Granulocyte Absolute 0.04 K/mm3 (0.00-0.031); Immature Granulocyte Percent A 0.3 % (0-0.5); Lymphocytes Absolute Auto 2.07 K/mm3 (0.9-3.2); Lymphocytes Percent Auto 17.3 % (18.3-44.2); Mean Corpuscular HGB Conc 34.6 g/dl (32-36); Mean Corpuscular Hemoglobin 30.5 pg (26-34); Mean Platelet Volume 9.8 fl (7.4-10.4); Neutrophils Absolute Auto 8.5 K/mm3 (1.3-6.7); Neutrophils Percent Auto 71.5 % (45.5-73.1); Platelet Count Result 338 k/mm3 (150-375); Red Blood Count 4.99 M/mm3 (4.6-6.20); Red Cell Distribution Width 12.2 % (11.5-14.5)
[2021-12-31 06:26] LABS: Chloride 102 mmol/L (98-107)
[2021-12-31 06:30] LABS: Alanine Aminotransferase 27 U/L (6-50); Albumin Level 4.4 g/dL (3.5-5.1); Alkaline Phosphatase 116 U/L (38-126); Anion Gap 12 mmol/L (8-16); Aspartate Amino Transferase 21 U/L (17-59); Bilirubin,Total 0.5 mg/dL (0.2-1.3); Blood Urea Nitrogen 11 mg/dL (9-20); Carbon Dioxide 26 mmol/L (22-30); Estimated CRCL calculation 123 ml/min; Estimated Glomerular Filt Rate > 60; Glucose 96 mg/dL (65-110); Potassium 3.4 mmol/L (3.4-5.0); Sodium 140 mmol/L (137-145)
[2021-12-31] MEDS: PANTOPRAZOLE SODIUM IV 40 MG VIAL IV PUSH ×2 (08:31→21:14)
--- NOTE | 2021-12-31 09:39 | PM.CNGS ---
Assessment and Plan Assessment and plan (1) Acute calculous cholecystitis: Code(s): K80.00 - Calculus of gallbladder with acute cholecystitis without obstruction Status: Acute Assessment and Plan: CT scan and ultrasound reviewed and discussed with the patient in detail. Ultrasound suggests acute cholecystitis with cholelithiasis. LFTs are still normal. WBC slightly elevated this morning at 12k. His presentation and exam clinically correlate with acute cholecystitis and he continues to have persistent abdominal pain this morning. He has been having ongoing abdominal pain for a week. Given his length of symptoms, there is concern for a significant amount of inflammation associated with the gallbladder and can make the surgery more difficult and increases his risks. I discussed all possible treatment options with the patient, including conservative management and possibly placement of a percutaneous cholecystostomy tube versus proceeding with a laparoscopic cholecystectomy, possible open, under general anesthesia. Description of the procedures, risks, benefits, alternatives, and expected recovery were discussed in detail. Dr. Negro will be evaluating the patient separately this morning and we will decide on further plan after his evaluation. Will keep NPO for now on IV fluids with IV analgesics as needed. (2) Tobacco abuse: Code(s): Z72.0 - Tobacco use Status: Acute Assessment and Plan: Increases risks of surgery. Encouraged cessation. (3) Elevated blood pressure reading: Code(s): R03.0 - Elevated blood-pressure reading, without diagnosis of hypertension Status: Acute Assessment and Plan: Blood pressure has been slightly elevated since admission. Most recent BP is 158/80. Could be pain related. Management per Hospitalist. Does not take any home medications. Plan I have discussed the patient's case and plan of care with Dr. Negro. Thank you for allowing us to see the patient in consultation and we will continue to follow along with you. History of Present Illness Consult details Consult date: 12/31/21 Reason for consult: gallstones ( Acute cholecystitis) Requesting physician: Hellen Gross MD Narrative: This is a 36-year-old male with a remote history of IV drug use, who presented to the ER overnight with complaints of right upper quadrant and epigastric abdominal pain. He reports having a sudden onset of abdominal pain about 2 hours after eating mostaccioli for dinner one week ago. He reports initially this was in the epigastric area but has slowly migrated to the right upper quadrant. His pain radiates to his right mid back. Denies any nausea or vomiting. Denies ever having similar episodes of abdominal pain in the past. His pain improved slightly over the next 2 days, but began to worsen again. He felt his abdominal pain was aggravated by eating. Yesterday for dinner, he had steak and green beans. His abdominal pain again worsened and was unbearable. He then presented to the ER for further evaluation. CT scan of the abdomen and pelvis showed cholelithiasis with gallbladder distention. Labs showed a normal white blood cell count, normal LFTs, and normal lipase. The patient was admitted to the hospitalist service and our service was consulted for possible acute cholecystitis. He is now seen on the medical floor. He is still having a fair amount of abdominal pain that is mostly in the right upper quadrant. He received IV morphine around 6:00 a.m. this morning, which is helping relieve some of his pain. He had a right upper quadrant abdominal ultrasound this morning that showed cholelithiasis with gallbladder wall thickening and gallbladder distention, suggestive of acute cholecystitis. Labs [place] [id number] and still normal LFTs. No previous abdominal surgeries. He is a current everyday smoker. Review of Systems Review of Systems: All systems rev
[2022-01-01] VITALS (16 sets, daily range): BP systolic 122–178; BP diastolic 67–114; PULSE 60–101; RESP 12–23; TEMP 36.6–37; O2SAT 93–100
[2022-01-01] MEDS: SODIUM CHLORIDE 0.9% IV 1,000 ML 100 ML IV CONT ×2 (05:37→23:45)
[2022-01-01 05:45] LABS: Basophils Percent Auto 0.8 % (0.2-1.2); Eosinophils Absolute Auto 0.4 K/mm3 (0-0.3); Eosinophils Percent Auto 6.8 % (0-4.4); Hematocrit 43.1 % (42.0-52.0); Hemoglobin 14.8 g/dL (14.0-18.0); Immature Granulocyte Absolute 0.01 K/mm3 (0.00-0.031); Immature Granulocyte Percent A 0.2 % (0-0.5); Lymphocytes Percent Auto 47.3 % (18.3-44.2); Mean Corpuscular HGB Conc 34.3 g/dl (32-36); Mean Corpuscular Hemoglobin 30.8 pg (26-34); Mean Corpuscular Volume 89.8 fl (80-100); Mean Platelet Volume 9.4 fl (7.4-10.4); Monocytes Absolute Auto 0.5 K/mm3 (0.1-0.6); Monocytes Percent Auto 8.7 % (2.6-8.5); Neutrophils Absolute Auto 1.9 K/mm3 (1.3-6.7); Neutrophils Percent Auto 36.2 % (45.5-73.1); Platelet Count Result 291 k/mm3 (150-375); Red Cell Distribution Width 12.7 % (11.5-14.5); White Blood Count 5.3 K/mm3 (4.5-10.0)
[2022-01-01 06:01] LABS: Alanine Aminotransferase 41 U/L (6-50); Albumin Level 3.6 g/dL (3.5-5.1); Alkaline Phosphatase 102 U/L (38-126); Anion Gap 11 mmol/L (8-16); Aspartate Amino Transferase 29 U/L (17-59); Bilirubin,Total 0.5 mg/dL (0.2-1.3); Blood Urea Nitrogen 6 mg/dL (9-20); Calcium 8.2 mg/dL (8.4-10.2); Carbon Dioxide 23 mmol/L (22-30); Chloride 107 mmol/L (98-107); Estimated CRCL calculation 110 ml/min; Estimated Glomerular Filt Rate > 60; Glucose 95 mg/dL (65-110); Potassium 3.8 mmol/L (3.4-5.0); Sodium 141 mmol/L (137-145)
[2022-01-01] MEDS: PANTOPRAZOLE SODIUM IV 40 MG VIAL IV PUSH ×2 (08:06→21:10)
--- NOTE | 2022-01-01 10:10 | PC.NURSE ---
Patient off of unit to pre-op
--- NOTE | 2022-01-01 11:26 | WPDANESEPPF ---
Anes - Initial Pre Proc Eval Procedure: Operation Date: 01/01/22 11:30 Proposed Procedures p Laparoscopic Cholecystectomy, Possible Open - Greyson Negro DO Date/Time: 01/01/22 11:26 Surgeon: Vance Bruleson MD Pre Op Diagnosis: RUQ Pain, Possible Cholecystitis Patient Data Age: 36 Gender: M Height: 1.83 m Weight: 96 kg Last Vital Signs Temp 98.1 F 01/01/22 06:00 Pulse 68 01/01/22 06:00 Resp 16 01/01/22 06:00 BP 122/81 01/01/22 06:00 Pulse Ox 98 01/01/22 06:00 O2 Del Method Room Air 01/01/22 08:00 Allergies Allergy/AdvReac Type Severity Reaction Status Date / Time No Known Allergies Allergy Verified 01/01/22 10:31 Home Medications Medication Instructions Recorded Confirmed Type No Home Medications 12/31/21 12/31/21 History Laboratory Tests 01/01/22 01/01/22 05:40 05:40 WBC 5.3 K/mm3 K/mm3 (4.5-10.0) RBC 4.80 M/mm3 M/mm3 (4.6-6.20) Hgb 14.8 g/dL g/dL (14.0-18.0) Hct 43.1 % % (42.0-52.0) MCV 89.8 fl fl (80-100) MCH 30.8 pg pg (26-34) MCHC 34.3 g/dl g/dl (32-36) RDW 12.7 % % (11.5-14.5) Plt Count 291 k/mm3 k/mm3 (150-375) MPV 9.4 fl fl (7.4-10.4) Immature Gran % (Auto) 0.2 % % (0-0.5) Neut % (Auto) 36.2 % L % (45.5-73.1) Lymph % (Auto) 47.3 % H % (18.3-44.2) Prentiss % (Auto) 8.7 % H % (2.6-8.5) Eos % (Auto) 6.8 % H % (0-4.4) Baso % (Auto) 0.8 % % (0.2-1.2) Lymph # (Auto) 2.50 K/mm3 K/mm3 (0.9-3.2) Prentiss # (Auto) 0.5 K/mm3 K/mm3 (0.1-0.6) Eos # (Auto) 0.4 K/mm3 H K/mm3 (0-0.3) Baso # (Auto) 0.0 K/mm3 K/mm3 (0.0-0.1) Abs Immat Gran (auto) 0.01 K/mm3 K/mm3 (0.00-0.031) Absolute Neuts (auto) 1.9 K/mm3 K/mm3 (1.3-6.7) Absolute Nucleated RBC 0.0 K/mm3 K/mm3 (0.0-0.012) Nucleated RBC % 0.0 % % (0.0-0.2) Sodium 141 mmol/L mmol/L (137-145) Potassium 3.8 mmol/L mmol/L (3.4-5.0) Chloride 107 mmol/L mmol/L (98-107) Carbon Dioxide 23 mmol/L mmol/L (22-30) Anion Gap 11 mmol/L mmol/L (8-16) BUN 6 mg/dL L D mg/dL (9-20) Creatinine 0.90 mg/dL mg/dL (0.7-1.3) Estim Creat Clear Calc 110 ml/min ml/min Estimated GFR > 60 (59 - ) Glucose 95 mg/dL mg/dL (65-110) Calcium 8.2 mg/dL L mg/dL (8.4-10.2) Total Bilirubin 0.5 mg/dL mg/dL (0.2-1.3) AST 29 U/L U/L (17-59) ALT 41 U/L U/L (6-50) Alkaline Phosphatase 102 U/L U/L (38-126) Total Protein 6.0 g/dL L g/dL (6.3-8.2) Albumin 3.6 g/dL g/dL (3.5-5.1) Patient hx anesthesia problems: none Family hx anesthesia problems: none Results Review: All pre-operative results and documents have been reviewed as part of the pre-operative evaluation. [facility] Past Medical History Medical History (Updated 12/31/21 @ 10:38 by TIEN Fierro) History of illicit drug use Remote history of IV drug use Tobacco abuse Surgical History Surgical History No pertinent past surgical history Social History Social History Smoking packs per day: 1 Smoking cigarettes per day: 20.0 Years smoked: 15 Smoking pack-years: 15.00 Smoking status: Current every day smoker Tobacco type: cigarettes Alcohol intake: never Substance use: former Substance use type: amphetamines and IV drugs Has the Lack of Transportation Kept You From Medical Appointments or From Getting Medications?: No Within the Past 12 Months, Were You Worried Whether Your Food Would Run Out Before You Got Money to Buy More?: Never True What is Your Housing Situation Today?: I Have Housing Are You Worried That in the Next 2 Months, You May Not Have Your Own Housing to Live In?: Decline to Answer Do
--- NOTE | 2022-01-01 11:34 | WPDHPUPDATE1 ---
History and Physical Update Update Date/Time: 01/01/22 11:34 History and Physical has been reviewed, including an updated exam of the patient. There are NO changes in the patient's condition. Risks, benefits, and alternatives have been discussed and questions answered. Patient agrees to proceed with procedure.
--- NOTE | 2022-01-01 11:46 | PM.IMPN ---
Progress Note: A&P Assessment and Plan (1) Cholecystitis: Code(s): K81.9 - Cholecystitis, unspecified Status: Acute Assessment and Plan: Concern for calculous cholecystitis Continue iv pain control and iv zosyn and iv flagyl Ultrasound suggests acute cholecystitis with cholelithiasis. LFTs are still normal. WBC slightly elevated. Pt seen by surgery? Pt going to OR today for lap guzman (2) Abdominal pain: Code(s): R10.9 - Unspecified abdominal pain Status: Acute Assessment and Plan: Secondary to acute cholecystitis with cholelithiasis Plan #H/o of smoking refuses nicotine patch adviced to quit smoking #H/o of amphetamine abuse adviced to quit drug habit #Bp was elevated due to abdominal pain Bp is stable with pain medication #Dvt prop lovenox shots Subjective Date/time seen: 01/01/22 11:46 36 years old male with past medical history of amphetamine abuse presented to the hospital with abdominal pain epigastric and right hypochondrial area severe requiring pain medication continue to be unresolved in the ER per ER physician CT scan showed probable calculous cholecystitis surgery Pt is going for lap cholecystectomy today Pt Bp is more stable today Pt states he does smoke one pack of cigarettes a day denies amphetamine use a the moment. Review of Systems Review of Systems: More abdominal pains Exam Const: General: comfortable, no acute distress and awake Nutritional Appearance: average body habitus Orientation/consciousness: patient oriented x3 HENMT: Head: normocephalic and atraumatic Ears: hearing grossly normal bilaterally Mouth: Yes moist mucous membranes Eyes: General: appearance normal, both eyes and all related structures Sclera: sclerae normal Pupils: Equal, round and reactive pupils present EOM: EOMs intact bilaterally Neck: Neck: normal visual inspection and full ROM Resp: Effort & Inspection: no respiratory distress Auscultation: clear to auscultation bilaterally Cardio: Rate: regular rate Rhythm: regular rhythm Heart sounds: S1 normal heart sound present and S2 normal heart sound present GI: Inspection: normal to inspection, non-distended and no scars GI Palp: Yes Soft to palpation, Yes Tenderness to palpation present (GI) (epigastric, RUQ), Yes Guarding due to palpation present (GI) (RUQ), No Hernia present and No Rebound tenderness present Percussion: Yes normal to percussion Auscultation: normal bowel sounds Rectal Exam: deferred Back/Spine/Pelvis: Back: no CVA tenderness Skin: General skin exam: normal color Rashes: no rashes Neuro: General: moves all extremities and no focal motor deficits Cranial nerves: Yes CN's II-XII intact bilaterally Speech: normal speech Motor exam (neuro): 5/5 motor strength present throughout Extrem: General: normal to inspection and no edema Psych: Mental Status: mental status grossly normal Affect: normal affect Attitude: cooperative Insight: Good insight present (Psych) Judgement: Good judgement present (Psych) Objective Data Vital Signs Vital Signs: Vital Signs - 24 hr 12/31/21 15:54 12/31/21 20:00 12/31/21 21:22 Temperature 36.6 C 36.7 C Pulse Rate 66 60 Respiratory Rate 18 18 Blood Pressure 126/77 130/76 Pulse Oximetry 99 99 Oxygen Delivery Room Air 01/01/22 00:00 01/01/22 06:00 01/01/22 08:00 Temperature 36.7 C 36.7 C Pulse Rate 60 68 Respiratory Rate 18 16 Blood Pressure 134/74 122/81 Pulse Oximetry 99 98 Oxygen Delivery Room Air Intake/Output Intake/Output: Intake & Output 12/29/21 12/30/21 12/31/21 01/01/22 23:59 23:59 23:59 23:59 Intake Total 2440 1050 Output Total 0 Balance 2440 1050 Meds/Results Medications: Active Medications Generic Name Dose Route Start Last Admin Trade Name Freq PRN Reason Stop Dose Admin Acetaminophen 650 mg 12/31/21 04:26 Acetaminophen 325 Mg Tablet PO Q6H PRN Moderate pain Hydroc
[2022-01-01] MEDS: BUPIVACAINE/EPINEPHRINE 0.25% 50 ML VIAL INFILTRATE (13:40)
--- NOTE | 2022-01-01 13:57 | W.PM.PROC2 ---
Procedure Note - Detailed Date of Procedure 01/01/22 Pre-op Diagnosis Acute calculous cholecystitis Post-op Diagnosis Same Procedure Performed Laparoscopic Cholecystectomy Surgeon Greyson Negro, DO Anesthesia General and Local (0.5% bupivacaine) Indications This is a 36-year-old man who presented to the emergency department with right upper quadrant abdominal pain over the past week. He continued to have pain and was not able to tolerate eating without worsening pain. He presented to the emergency department and a CT showed evidence of acute calculous cholecystitis. He was admitted for further treatment. His white blood count was normal and liver enzymes were normal. Discussions were made with the patient about treatment options and decision was made to proceed with laparoscopic cholecystectomy, possible open. Findings Laparoscopic cholecystectomy was performed. The gallbladder had some gallbladder wall thickening and hyperemia. The cystic duct appeared normal in size. There were multiple gallstones within the gallbladder. Gallbladder was removed and sent to the lab for pathology. Description of Procedure Procedure as well as risks, benefits, and alternatives were discussed with patient. Written consent was obtained and placed in chart prior to procedure. The patient was brought back to surgical suite. Patient was placed in supine position on operating table. Time-out was done to confirm patient and procedure. Patient was then intubated by the anesthesia department. Abdomen was prepped and draped in sterile fashion using chlorhexidine prep. 0.5% bupivacaine with epinephrine was infiltrated at each site of incision. A 5 millimeter incision was made near the umbilicus, and a 5 millimeter Optiview trocar was advanced through the abdominal layers under direct visualization. Once inside the abdominal cavity, carbon dioxide was insufflated to create a pneumoperitoneum. The camera was inserted and the abdomen was inspected. No immediate abnormalities were identified. The patient was placed in reverse Trendelenburg position and rotated slightly to the left. An 11 millimeter incision was made in the subxiphoid region, and an 11 millimeter trocar was inserted under direct visualization. Two 5 millimeter incisions were made in the right upper quadrant, and two 5 millimeter trocars were inserted under direct visualization. The gallbladder was identified and grasped at the fundus and retracted superiorly. It was then grasped at the infundibulum retracted laterally. Careful dissection around the neck of the gallbladder was performed using blunt dissection with a [place] grasper and hook electrocautery. The cystic duct was identified, and a window was created behind it. The cystic artery was also identified and a window was created behind it. The critical view of safety was identified, visualizing the cystic duct running directly into the neck of the gallbladder, and the cystic artery running directly into the wall of the gallbladder. A 5 millimeter clip engine generator assembler was then used to place 2 clips proximally and 1 clip distally on both the cystic duct and cystic artery. They were then both transected using endoscopic scissors. Once safely away from the edwin hepatitis, the gallbladder was dissected free from the liver bed using hook electrocautery. Hemostasis was achieved along the way. The gallbladder was removed completely and then removed through the subxiphoid port. The liver bed was then inspected. Hemostasis appeared adequate, and our clips appeared secure. The area was gently irrigated with sterile saline. No other abnormalities were seen. The patient was flattened out in bed, and 1 final inspection was made around the abdominal cavity. The subxiphoid port was removed, and a Gilbert Marlyn cone was used to approximate the fascia with an 0-Vicryl simple interrupted suture. The remaining ports were then removed under direct visualization, the came
[2022-01-01] MEDS: LACTATED RINGERS 1,000 ML 30 ML IV CONT ×2 (14:12→14:30)
[2022-01-01] MEDS: fentaNYL CITRATE INJ (*CRX) 100 MCG/2 ML VIAL 25 MCG IV PUSH ×7 (14:18→14:50)
[2022-01-01] MEDS: HYDROmorphone HCL INJ (*CRX) 1 MG/ML SYR 0.5 MG IV PUSH ×2 (14:56→15:15)
[2022-01-01] MEDS: HYDROcodone/acetaminophen (*CRX) 5-325 MG TABLET 1 TAB PO ×2 (18:11→23:46)
[2022-01-02 05:27] VITALS: BP 142/78; PULSE 105; RESP 18; TEMP 36.7; O2SAT 95
[2022-01-02] MEDS: HYDROcodone/acetaminophen (*CRX) 5-325 MG TABLET 1 TAB PO (05:44)
[2022-01-02 06:59] LABS: Basophils Percent Auto 0.2 % (0.2-1.2); Eosinophils Percent Auto 0.1 % (0-4.4); Hematocrit 40.1 % (42.0-52.0); Hemoglobin 13.9 g/dL (14.0-18.0); Immature Granulocyte Absolute 0.06 K/mm3 (0.00-0.031); Immature Granulocyte Percent A 0.4 % (0-0.5); Lymphocytes Absolute Auto 2.16 K/mm3 (0.9-3.2); Lymphocytes Percent Auto 15.5 % (18.3-44.2); Mean Corpuscular HGB Conc 34.7 g/dl (32-36); Mean Corpuscular Hemoglobin 30.5 pg (26-34); Mean Corpuscular Volume 87.9 fl (80-100); Mean Platelet Volume 9.8 fl (7.4-10.4); Monocytes Absolute Auto 1.2 K/mm3 (0.1-0.6); Monocytes Percent Auto 8.2 % (2.6-8.5); Neutrophils Absolute Auto 10.6 K/mm3 (1.3-6.7); Neutrophils Percent Auto 75.6 % (45.5-73.1); Platelet Count Result 337 k/mm3 (150-375); Red Blood Count 4.56 M/mm3 (4.6-6.20); Red Cell Distribution Width 12.1 % (11.5-14.5)
[2022-01-02 07:04] LABS: Alanine Aminotransferase 53 U/L (6-50); Albumin Level 3.7 g/dL (3.5-5.1); Alkaline Phosphatase 100 U/L (38-126); Anion Gap 12 mmol/L (8-16); Aspartate Amino Transferase 42 U/L (17-59); Bilirubin,Total 0.5 mg/dL (0.2-1.3); Blood Urea Nitrogen 8 mg/dL (9-20); Calcium 8.6 mg/dL (8.4-10.2); Carbon Dioxide 25 mmol/L (22-30); Chloride 103 mmol/L (98-107); Estimated CRCL calculation 110 ml/min; Estimated Glomerular Filt Rate > 60; Glucose 100 mg/dL (65-110); Potassium 3.5 mmol/L (3.4-5.0); Sodium 140 mmol/L (137-145)
--- NOTE | 2022-01-02 08:22 | PM.IMPN ---
Progress Note: A&P Assessment and Plan (1) Cholecystitis: Code(s): K81.9 - Cholecystitis, unspecified Status: Acute Assessment and Plan: presented with 4 days of intermittent abdominal pain. Leukocytosis on admission at 12,000 with normal LFT. Ultrasound with acute cholecystitis with cholelithiasis. Underwent laparoscopic cholecystectomy 01/01/2022 On IV Zosyn Continue postoperative care Leukocytosis likely reactive from surgery. Vitals were reviewed and stable if surgically stable plan for discharge home to follow-up as an outpatient basis (2) Abdominal pain: Code(s): R10.9 - Unspecified abdominal pain Status: Acute Assessment and Plan: Secondary to acute cholecystitis with cholelithiasis Plan #H/o of smoking refuses nicotine patch adviced to quit smoking #H/o of amphetamine abuse adviced to quit drug habit #Bp was elevated due to abdominal pain No prior diagnosis of hypertension Bp is stable with pain medication #Dvt prop lovenox Subjective Date/time seen: 01/02/22 08:22 Interval history: doing well post surgery abdomen is sore at the surgical site. No nausea vomiting. Tolerated diet. Review of Systems Review of Systems: All systems reviewed & are unremarkable except as noted in HPI and below Exam Narrative: GENERAL: Well appearing, well-nourished, non-toxic, in no acute distress. HEAD: Normocephalic, atraumatic. NECK: Supple. No adenopathy, no masses. RESPIRATORY: Airway patent, respirations nonlabored. Clear to auscultation bilaterally, no rales, rhonchi, wheezing. CARDIOVASCULAR: Regular rate and rhythm without murmurs, rubs, or gallops. Peripheral pulses 2+ and equal bilaterally. ABDOMINAL: Soft surgical incision sites noted, mild tenderness no distension MUSCULOSKELETAL: Negative edema SKIN: Warm, dry, normal color. No rashes. NEURO: A&O X3. Moves all extremities PSYCHIATRIC: Appropriate mood and affect. Normal interaction. Objective Data Vital Signs Vital Signs: Vital Signs - 24 hr 01/01/22 14:06 01/01/22 14:24 01/01/22 14:40 Temperature 98 F Pulse Rate 101 H 78 60 Respiratory Rate 20 23 H 21 H Blood Pressure 177/114 H 178/111 H 154/97 H Pulse Oximetry 100 100 100 Oxygen Delivery Simple Face Mask Simple Face Mask Simple Face Mask Oxygen Flow Rate 8 8 8 01/01/22 14:50 01/01/22 15:06 01/01/22 15:20 Temperature Pulse Rate 85 66 91 Respiratory Rate 17 14 12 Blood Pressure 155/67 H 158/101 H 155/98 H Pulse Oximetry 93 93 93 Oxygen Delivery Room Air Room Air Oxygen Flow Rate 01/01/22 15:35 01/01/22 15:48 01/01/22 16:10 Temperature 98.5 F Pulse Rate 90 77 69 Respiratory Rate 12 18 18 Blood Pressure 159/99 H 148/98 H 139/92 H Pulse Oximetry 93 93 94 Oxygen Delivery Room Air Room Air Oxygen Flow Rate 01/01/22 16:29 01/01/22 16:53 01/01/22 18:09 Temperature 98.1 F 98.1 F 98.0 F Pulse Rate 87 62 85 Respiratory Rate 18 18 16 Blood Pressure 133/92 H 136/93 H 146/89 H Pulse Oximetry 96 95 99 Oxygen Delivery Oxygen Flow Rate 01/01/22 21:10 01/01/22 23:59 01/02/22 05:27 Temperature 98.6 F 98.6 F 98.1 F Pulse Rate 73 100 105 H Respiratory Rate 18 18 18 Blood Pressure 143/90 H 137/84 142/78 H Pulse Oximetry 97 97 95 Oxygen Delivery Oxygen Flow Rate Intake/Output Intake/Output: Intake & Output 12/30/21 12/31/21 01/01/22 01/02/22 23:59 23:59 23:59 23:59 Intake Total 2440 3230 450 Output Total 0 1675 750 Balance 2440 1555 -300 Meds/Results Medications: Active Medications Generic Name Dose Route Start Last Admin Trade Name Freq PRN Reason Stop Dose Admin Acetaminophen 650 mg 12/31/21 04:26 Acetaminophen 325 Mg Tablet PO Q6H PRN Moderate pain Hydrocodone Bitart/Acetaminophen 1 tab 01/02/22 06:50 Hydrocodone/Acetaminophen (*Crx) 5-325 Mg Tablet PO Q4H PRN Pain Rated 4-6 Hydrocodone Bitart/Acetaminophen 1 tab 01/02/22 06:50 Hydrocodone/Sourav
[2022-01-02] MEDS: PANTOPRAZOLE SODIUM IV 40 MG VIAL IV PUSH (08:36)
[2022-01-02] MEDS: ENOXAPARIN 40 MG/0.4 ML SYRINGE SUB-Q (08:38)
--- NOTE | 2022-01-02 10:26 | PM.PNGS ---
Progress Note: A&P Assessment and Plan (1) Acute calculous cholecystitis: Code(s): K80.00 - Calculus of gallbladder with acute cholecystitis without obstruction Status: Acute Assessment and Plan: Postop day 1 and doing well. Pain is well controlled. He is tolerating a low-fat diet. Okay to discharge the patient from our standpoint on a low-fat diet today. Will follow up with Dr. Negro in 2 weeks. Discussed discharge instructions with the patient. (2) Tobacco abuse: Code(s): Z72.0 - Tobacco use Status: Acute Assessment and Plan: Again encouraged cessation. The patient is not at all interested in quitting and still plans on continuing smoking. We discussed the risks associated with tobacco abuse in the post-op period. (3) Elevated blood pressure reading: Code(s): R03.0 - Elevated blood-pressure reading, without diagnosis of hypertension Status: Acute Assessment and Plan: BP has been slightly elevated since admission and he had high BP's during surgery. His BP is stable this morning but encouraged him to f/u with his PCP after discharge and monitor his BP at home. Plan I have discussed the patient's case and plan of care with Dr. Negro. Subjective Subjective Date/Time Seen: 01/02/22 10:26 Post Op day: 1 (Lap guzman) Patient reports: feels better, tolerating a regular diet, voiding w/o difficulty, no flatus, no bowel movement and afebrile Interval history: Patient seen and examined. Tolerating a low fat diet well. No longer having the same right upper quadrant abdominal pain as he had prior to surgery. Now just dealing with some incisional discomfort. No nausea or vomiting. No other complaints at this time. Review of Systems Review of Systems: All systems reviewed & are unremarkable except as noted in HPI and below Exam Const: General: comfortable, no acute distress and awake Orientation/consciousness: patient oriented x3 GI: Inspection: non-distended and incision (Abdominal incisions clean and dry, glue intact.) GI Palp: Yes Soft to palpation, Yes Tenderness to palpation present (GI) (incisional) and No Guarding due to palpation present (GI) Auscultation: normal bowel sounds Neuro: General: moves all extremities and no focal motor deficits Extrem: General: no calf tenderness and no edema Psych: Mental Status: mental status grossly normal Insight: Good insight present (Psych) Judgement: Good judgement present (Psych) Objective Data Vital Signs Vital Signs: Vital Signs - 24 hr 01/01/22 14:06 01/01/22 14:24 01/01/22 14:40 Temperature 98 F Pulse Rate 101 H 78 60 Respiratory Rate 20 23 H 21 H Blood Pressure 177/114 H 178/111 H 154/97 H Pulse Oximetry 100 100 100 Oxygen Delivery Simple Face Mask Simple Face Mask Simple Face Mask Oxygen Flow Rate 8 8 8 01/01/22 14:50 01/01/22 15:06 01/01/22 15:20 Temperature Pulse Rate 85 66 91 Respiratory Rate 17 14 12 Blood Pressure 155/67 H 158/101 H 155/98 H Pulse Oximetry 93 93 93 Oxygen Delivery Room Air Room Air Oxygen Flow Rate 01/01/22 15:35 01/01/22 15:48 01/01/22 16:10 Temperature 98.5 F Pulse Rate 90 77 69 Respiratory Rate 12 18 18 Blood Pressure 159/99 H 148/98 H 139/92 H Pulse Oximetry 93 93 94 Oxygen Delivery Room Air Room Air Oxygen Flow Rate 01/01/22 16:29 01/01/22 16:53 01/01/22 18:09 Temperature 98.1 F 98.1 F 98.0 F Pulse Rate 87 62 85 Respiratory Rate 18 18 16 Blood Pressure 133/92 H 136/93 H 146/89 H Pulse Oximetry 96 95 99 Oxygen Delivery Oxygen Flow Rate 01/01/22 21:10 01/01/22 23:59 01/02/22 05:27 Temperature 98.6 F 98.6 F 98.1 F Pulse Rate 73 100 105 H Respiratory Rate 18 18 18 Blood Pressure 143/90 H 137/84 142/78 H Pulse Oximetry 97 97 95 Oxygen Delivery Oxygen Flow Rate 01/02/22 08:00 Temperature Pulse Rate Respiratory Rate Blood Pressure Pulse Oximetry Oxygen Delivery Room Air Oxygen Flow Rate Intake/O
[2022-01-02 10:37] VITALS: BP 155/91; PULSE 75; RESP 20; TEMP 36.3; O2SAT 98
--- NOTE | 2022-01-02 11:34 | PM.DS ---
DS: Admitting Diagnosis Discharge Date 01/02/2022 Admitting Diagnosis abdominal pain DS: Discharge Diagnosis Discharge Diagnosis (1) Cholecystitis: Code(s): K81.9 - Cholecystitis, unspecified Status: Acute (2) Abdominal pain: Code(s): R10.9 - Unspecified abdominal pain Status: Acute DS: Summary Hospital Course Hospital Course: abdominal pain # 2nd acute cholecystitis with cholelithiasis # acute cholecystitis: Presented with days of intermittent abdominal pain. Leukocytosis on admission at 12,000 with normal LFT. Ultrasound with acute cholecystitis and cholelithiasis. underwent laparoscopic cholecystectomy 01/01/2022. Preoperatively he was started on IV Zosyn postoperatively did well. Okay for discharge per General surgery. He will follow-up with them as an outpatient basis. # elevated blood pressure no prior diagnosis of hypertension this was during the postoperative period. This is improved with improved pain. He will continue to follow up as an outpatient basis. # history of amphetamine use and smoking advised to quit Time Spent with Patient Time attestation: Total time spent providing and/or coordinating discharge services: 40 minutes Exam Narrative: GENERAL: Well appearing, well-nourished, non-toxic, in no acute distress. HEAD: Normocephalic, atraumatic. NECK: Supple. No adenopathy, no masses. RESPIRATORY: Airway patent, respirations nonlabored. Clear to auscultation bilaterally, no rales, rhonchi, wheezing. CARDIOVASCULAR: Regular rate and rhythm without murmurs, rubs, or gallops. Peripheral pulses 2+ and equal bilaterally. ABDOMINAL: Soft surgical incision sites noted, mild tenderness no distension MUSCULOSKELETAL: Negative edema SKIN: Warm, dry, normal color. No rashes. NEURO: A&O X3. Moves all extremities PSYCHIATRIC: Appropriate mood and affect. Normal interaction. DS: Data Data Completed and Pending Pending studies at discharge: Pending at discharge 01/01/22 13:36 Surgical [PTH] Routine Labs on day of discharge: Labs from last 24 hours 01/02/22 01/02/22 05:38 05:38 WBC 14.0 H RBC 4.56 L Hgb 13.9 L Hct 40.1 L MCV 87.9 MCH 30.5 MCHC 34.7 RDW 12.1 Plt Count 337 MPV 9.8 Immature Gran % (Auto) 0.4 Neut % (Auto) 75.6 H Lymph % (Auto) 15.5 L Bay % (Auto) 8.2 Eos % (Auto) 0.1 Baso % (Auto) 0.2 Lymph # (Auto) 2.16 Bay # (Auto) 1.2 H Eos # (Auto) 0.0 Baso # (Auto) 0.0 Abs Immat Gran (auto) 0.06 H Absolute Neuts (auto) 10.6 H Absolute Nucleated RBC 0.0 Nucleated RBC % 0.0 Sodium 140 Potassium 3.5 Chloride 103 Carbon Dioxide 25 Anion Gap 12 BUN 8 L Creatinine 0.90 Estim Creat Clear Calc 110 Estimated GFR > 60 Glucose 100 Calcium 8.6 Total Bilirubin 0.5 AST 42 ALT 53 H Alkaline Phosphatase 100 Total Protein 6.0 L Albumin 3.7 Preliminary micro results at discharge 12/31/21 05:57 Blood Culture - Preliminary Blood 12/31/21 05:58 Blood Culture - Preliminary Blood Procedures/Treatments: Procedure Note - Detailed Date of Procedure 01/01/22 Pre-op Diagnosis Acute calculous cholecystitis Post-op Diagnosis Same Procedure Performed Laparoscopic Cholecystectomy Surgeon Greyson Negro, DO Anesthesia General and Local (0.5% bupivacaine) Indications This is a 36-year-old man who presented to the emergency department with right upper quadrant abdominal pain over the past week.? He continued to have pain and was not able to tolerate eating without worsening pain.? He presented to the emergency department and a CT showed evidence of acute calculous cholecystitis.? He was admitted for further treatment.? His white blood count was normal and liver enzymes were normal.? Discussions were made with the patient about treatment options and decision was made to proceed with laparoscopic cholecystectomy, possible open. Findings Laparoscopic cholecystectomy
== END 2022-01-02 12:10 | disposition home or self-care (01) ==
LOC: ANHED 01:48 → ANH3MED 04:48
PROVIDERS: Surgery; Admitting Provider Internal Medicine; Emergency Provider Emergency Medicine; Visit Provider Internal Medicine
PROC: 0FT44ZZ Resection of Gallbladder, Percutaneous Endoscopic Approach (ICD-10-PCS; CPT 47562; principal; 2022-01-01 11:30)
DX: K80.00 Calculus of gallbladder with acute cholecystitis without obstruction (principal); F17.210 Nicotine dependence, cigarettes, uncomplicated; R03.0 Elevated blood-pressure reading, without diagnosis of hypertension; Z23 Encounter for immunization; D72.829 Elevated white blood cell count, unspecified; F15.11 Other stimulant abuse, in remission; F19.11 Other psychoactive substance abuse, in remission; Z20.822 Contact with and (suspected) exposure to COVID-19; Z79.899 Other long term (current) drug therapy
CPT/HCPCS: 47562; 36415; 74177; 76705; 80053; 80307; 81003; 83690; 84443; 85025; 87040; 88304; 90471; 90686; 96361; 96365; 96366; 96367; 96375; 96376; 99285; A9270; C9113; G0008; G0378; G0379; J0696; J1100; J1170; J1650; J2250; J2270; J2405; J2543; J2704; J2765; J3010; J7030; J7120; Q9967; U0003; U0005

== ENCOUNTER 2022-04-23 18:39 | Emergency (ER) | payer OTHER, SELFPAY ==
[2022-04-23 19:10] VITALS: BP 143/99; PULSE 96; RESP 18; TEMP 36.8; O2SAT 100
[2022-04-23 20:08] LABS: HIV 1/2 Ab P24 Ag Result Negative (Negative)
[2022-04-23 20:16] LABS: Hepatitis B Surface Anti Res Negative; Hepatitis C Virus Antibody Negative (Negative)
[2022-04-23 21:20] VITALS: BP 133/80; PULSE 98; RESP 14; TEMP 36.4; O2SAT 98
--- NOTE | 2022-04-23 21:29 | ED.GENADULT ---
HPI - General Adult General Chief complaint: Environmental Exposure Stated complaint: BLOOD BORNE EXPOSURE Time Seen by Provider: 04/23/22 20:52 History of Present Illness HPI narrative: 37-year-old male here for evaluation after possible environmental exposure. Patient states that he was helping during an accident where there was quite a bit of blood. Patient states that he got blood on his hands and the blood came in contact with a hangnail on his fingers. He was instructed by his boss to come to the ED for testing. He is fully vaccinated against hepatitis B. Related Data Home Medications Medication Instructions Recorded Confirmed No Home Medications 01/18/22 01/18/22 Allergies Allergy/AdvReac Type Severity Reaction Status Date / Time No Known Allergies Allergy Verified 04/23/22 19:14 Review of Systems Review of Systems: Gen.: Denies fevers or chills Eyes: Denies eye pain or visual change ENT: Denies congestion Respiratory: Denies shortness of breath or cough CV: Denies chest pain or palpitations GI: Denies abdominal pain nausea, emesis or diarrhea denies burning, urgency, frequency or hematuria Musculoskeletal: Denies back pain or muscle pain Neuro: Denies numbness, tingling, weakness or focal weakness Skin: Denies rash Except as documented, all other systems reviewed and negative [facility] Past Medical History Medical History History of illicit drug use Remote history of IV drug use Tobacco abuse Surgical History Surgical History Hx laparoscopic cholecystectomy 01/01/22 No pertinent past surgical history Social History Social History Smoking packs per day: 1 Smoking cigarettes per day: 20.0 Years smoked: 15 Smoking pack-years: 15.00 Smoking status: Current every day smoker Tobacco type: cigarettes Alcohol intake: never Substance use: former Substance use type: amphetamines and IV drugs Lack of Transportation: No Lack of Food: Never True Current Housing: I Have Housing Concerned About Future Housing: Decline to Answer Difficulty Paying Gas/Electric Bills: Decline to Answer Difficulty Paying for Meds: Decline to Answer Currently Unemployed: Decline to Answer Education: Trade/Vocational Certificate Difficulty w/ Childcare or Family Care: No Gender identity (if verbalized by the patient): Male Sexual Orientation (if Verbalized by the Patient): Straight or Heterosexual Spiritual care concerns: No Exam Narrative: APPEARANCE: Well appearing, no pain in distress, well-nourished. Head: Normocephalic and atraumatic. EYES: PERRLA/EOMI, conjunctivae clear NOSE: No nasal drainage EARS: External ear normal in appearance THROAT: Oropharynx is clear. Mucous membranes are moist. NECK: Supple. No adenopathy, no masses. RESPIRATORY: Airway patent, respirations nonlabored. Clear to auscultation bilaterally, no rales, rhonchi, wheezing. CARDIOVASCULAR: Regular rate and rhythm without murmurs, rubs, or gallops. ABDOMINAL: Normoactive bowel sounds. Soft, nontender, nondistended. No rebound tenderness or guarding. MUSCULOSKELETAL: Extremities are warm and well-perfused. Moves all extremities well. No edema. NEURO: Normal speech. No focal neurologic deficits. SKIN: Skin is warm and dry. No rashes. PSYCHIATRIC: Normal affect/mood.. Course Vital Signs Vital signs: Vital Signs Temperature 98.3 F 04/23/22 19:10 Pulse Rate 96 04/23/22 19:10 Respiratory Rate 18 04/23/22 19:10 Blood Pressure 143/99 H 04/23/22 19:10 Pulse Oximetry 100 04/23/22 19:10 Oxygen Delivery Room Air 04/23/22 19:10 Temperature 97.6 F 04/23/22 21:20 Pulse Rate 98 04/23/22 21:20 Respiratory Rate 14 04/23/22 21:20 Blood Pressure 133/80 04/23/22 21:20 Pulse Oximetry 98 04/23/22 21:20
== END 2022-04-23 21:20 | disposition home or self-care (01) ==
LOC: ANHED 21:17
PROVIDERS: Emergency Medicine; Emergency Provider Physician Assistant
DX: Z77.21 Contact with and (suspected) exposure to potentially hazardous body fluids (principal); F17.210 Nicotine dependence, cigarettes, uncomplicated
CPT/HCPCS: 36415; 86703; 86706; 86803; 99283; G0432

== ENCOUNTER 2022-07-02 21:27 | Emergency (ER) | payer OTHER, SELFPAY ==
[2022-07-02 21:29] VITALS: BP 145/90; PULSE 99; RESP 18; TEMP 36.6; O2SAT 100
[2022-07-02 23:23] VITALS: BP 140/105; PULSE 87; RESP 16; O2SAT 99
--- NOTE | 2022-07-02 23:23 | PC.NURSE ---
Pt reports 3 bumps to the back of his head that he first noticed today. Bumps are tender to touch and he reports mild pain in his neck. He denies hitting his head. No redness, unusual warmth, or drainage noted. Denies recent sickness or fevers.
[2022-07-03] MEDS: IBUPROFEN 400 MG TABLET 800 MG PO (01:07)
[2022-07-03] MEDS: ACETAMINOPHEN 500 MG TABLET 1000 MG PO (01:07)
--- NOTE | 2022-07-03 01:11 | ED.GENADULT ---
HPI - General Adult General Chief complaint: Skin/Abscess/Foreign Body <ADINA Lama Last Filed: 07/03/22 03:05> Stated complaint: lump to scalp <ADINA Lama Last Filed: 07/03/22 03:05> Time Seen by Provider: 07/02/22 23:52 <ADINA Lama Last Filed: 07/03/22 03:05> Source: patient <ADINA Lama Last Filed: 07/03/22 03:05> Mode of arrival: ambulatory <ADINA Lama Last Filed: 07/03/22 03:05> Limitations: no limitations <ADINA Lama Last Filed: 07/03/22 03:05> History of Present Illness HPI narrative: This is a 37-year-old male presents the ED with chief complaint of lumps to the back of the head. Patient states these lumps are tender. He is specifically concerned for cancer. States he had masses removed from his anterior neck a long time ago. Denies fevers, chills, sore throat, congestion, cough, shortness of breath, chest pain. He is otherwise asymptomatic. <ADIAN Lama Last Filed: 07/03/22 03:05> Related Data Home medications: Home Medications Medication Instructions Recorded Confirmed No Home Medications 01/18/22 01/18/22 <ADINA Lama Last Filed: 07/03/22 03:05> Allergies/adverse reactions: Allergies Allergy/AdvReac Type Severity Reaction Status Date / Time No Known Allergies Allergy Verified 04/23/22 19:14 <ADINA Lama Last Filed: 07/03/22 03:05> Review of Systems Review of Systems: CONSTITUTIONAL: Denies fever, chills, or sweats. EYES: Denies visual changes, redness, or discharge. ENT: Denies rhinorrhea, congestion, sore throat, or otalgia. CARDIOVASCULAR: Denies chest pain, palpitations, or edema. RESPIRATORY: Denies cough or dyspnea. GASTROINTESTINAL: Denies abdominal pain, nausea, vomiting, or diarrhea. GENITOURINARY: Denies dysuria or hematuria. SKIN: Denies rash or itching. MUSCULOSKELETAL: Denies back pain, joint pain, or myalgia. NEUROLOGIC: Denies headache, numbness, dizziness, or weakness. PSYCHIATRIC: Denies anxiety or depression. <Basil Bell PA-C - Last Filed: 07/03/22 03:05> PMFSH Past Medical History Medical History: Medical History History of illicit drug use Remote history of IV drug use Tobacco abuse <Basil Bell PA-C - Last Filed: 07/03/22 03:05> Surgical History Surgical History: Surgical History Hx laparoscopic cholecystectomy 01/01/22 No pertinent past surgical history <Basil Bell PA-C - Last Filed: 07/03/22 03:05> Social History Social History: Social History Smoking packs per day: 1 Smoking cigarettes per day: 20.0 Years smoked: 15 Smoking pack-years: 15.00 Smoking status: Current every day smoker Tobacco type: cigarettes Alcohol intake: never Substance use: former Substance use type: amphetamines and IV drugs Lack of Transportation: No Lack of Food: Never True Current Housing: I Have Housing Concerned About Future Housing: Decline to Answer Difficulty Paying Gas/Electric Bills: Decline to Answer Difficulty Paying for Meds: Decline to Answer Currently Unemployed: Decline to Answer Education: Trade/Vocational Certificate Difficulty w/ Childcare or Family Care: No Gender identity (if verbalized by the patient): Male Sexual Orientation (if Verbalized by the Patient): Straight or Heterosexual Spiritual care concerns: No <Basil Bell PA-C - Last Filed: 07/03/22 03:05> Exam Narrative: GENERAL: Well-appearing, well-nourished, and in no acute distress. HEAD: Normocephalic, atraumatic. EYES: PERRLA and EOMI. ENT: Nares clear, no rhinorrhea or epistaxis. Mucous membranes moist. Oropharynx without tonsillar hypertrophy exudate or other lesions. NECK: Supple. No adenopathy
[2022-07-03 01:13] LABS: Basophils Absolute Auto 0.1 K/mm3 (0.0-0.1); Basophils Percent Auto 0.8 % (0.2-1.2); Eosinophils Absolute Auto 0.4 K/mm3 (0-0.3); Eosinophils Percent Auto 4.6 % (0-4.4); Hematocrit 44.7 % (42.0-52.0); Hemoglobin 15.5 g/dL (14.0-18.0); Immature Granulocyte Absolute 0.02 K/mm3 (0.00-0.031); Immature Granulocyte Percent A 0.2 % (0-0.5); Lymphocytes Absolute Auto 3.54 K/mm3 (0.9-3.2); Lymphocytes Percent Auto 39.2 % (18.3-44.2); Mean Corpuscular HGB Conc 34.7 g/dl (32-36); Mean Corpuscular Hemoglobin 31.3 pg (26-34); Mean Corpuscular Volume 90.3 fl (80-100); Mean Platelet Volume 9.3 fl (7.4-10.4); Monocytes Absolute Auto 0.8 K/mm3 (0.1-0.6); Monocytes Percent Auto 8.8 % (2.6-8.5); Neutrophils Absolute Auto 4.2 K/mm3 (1.3-6.7); Neutrophils Percent Auto 46.4 % (45.5-73.1); Platelet Count Result 302 k/mm3 (150-375); Red Blood Count 4.95 M/mm3 (4.6-6.20); Red Cell Distribution Width 13.2 % (11.5-14.5)
[2022-07-03 01:22] LABS: Alanine Aminotransferase 29 U/L (6-50); Albumin Level 4.3 g/dL (3.5-5.1); Alkaline Phosphatase 103 U/L (38-126); Anion Gap 5 mmol/L (8-16); Aspartate Amino Transferase 20 U/L (17-59); Bilirubin,Total 0.5 mg/dL (0.2-1.3); Blood Urea Nitrogen 16 mg/dL (9-20); Carbon Dioxide 31 mmol/L (22-30); Chloride 105 mmol/L (98-107); Estimated CRCL calculation 111 ml/min; Estimated Glomerular Filt Rate > 60; Glucose 79 mg/dL (65-110); Potassium 4.1 mmol/L (3.4-5.0); Sodium 141 mmol/L (137-145)
[2022-07-03 01:46] VITALS: BP 140/77; PULSE 77; RESP 16; TEMP 36.6; O2SAT 99
== END 2022-07-03 01:47 | disposition home or self-care (01) ==
PROVIDERS: Emergency Provider Physician Assistant
DX: R51.9 Headache, unspecified (principal); F17.210 Nicotine dependence, cigarettes, uncomplicated
CPT/HCPCS: 36415; 80053; 85025; 99283; A9270

== ENCOUNTER 2022-09-13 03:30 | Emergency (ER) | payer OTHER, SELFPAY ==
[2022-09-13 03:45] VITALS: BP 145/94; PULSE 75; RESP 18; TEMP 36.3; O2SAT 100
--- NOTE | 2022-09-13 04:01 | ED.EAR ---
HPI - Ear Problem General Chief complaint: Ear Stated complaint: ear infection Time Seen by Provider: 09/13/22 03:39 History of Present Illness HPI Narrative: 37-year-old male presenting with pain to his left ear that has been ongoing for weeks, he was laughing recently and felt a pop and some relief of pressure but is still reporting some pain. He has also endorsed some chills and sore throat Related Data Allergies Allergy/AdvReac Type Severity Reaction Status Date / Time No Known Allergies Allergy Verified 09/13/22 03:49 Review of Systems Review of Systems: CONST: Chills HEENT: Sore throat and left ear pain C/V: No chest pain RESP: No cough GI: No abdominal pain : No dysuria. M/S: No joint pain. SKIN: No rash. NEURO: [No headache or focal numbness or weakness] PSYCH: [No depression] [facility] Past Medical History Medical History History of illicit drug use Remote history of IV drug use Tobacco abuse Surgical History Surgical History Hx laparoscopic cholecystectomy 01/01/22 No pertinent past surgical history Social History Social History Smoking packs per day: 1 Smoking cigarettes per day: 20.0 Years smoked: 15 Smoking pack-years: 15.00 Smoking status: Current every day smoker Tobacco type: cigarettes Alcohol intake: never Substance use: former Substance use type: amphetamines and IV drugs Lack of Transportation: No Lack of Food: Never True Current Housing: I Have Housing Concerned About Future Housing: Decline to Answer Difficulty Paying Gas/Electric Bills: Decline to Answer Difficulty Paying for Meds: Decline to Answer Currently Unemployed: Decline to Answer Education: Trade/Vocational Certificate Difficulty w/ Childcare or Family Care: No Gender identity (if verbalized by the patient): Male Sexual Orientation (if Verbalized by the Patient): Straight or Heterosexual Spiritual care concerns: No Exam Narrative: EXAMINATION OF ORGAN SYSTEMS/BODY AREAS: Constitutional: Vital signs per nursing GENERAL: Sitting comfortably in bed HEAD: Normal with no signs of head trauma. EYES: EOMI, conjunctiva normal ENT: Purulent discharge left TM LUNGS: Nonlabored breathing. HEART: [Regular rate and rhythm] ABD: No distention EXT: Normal range of motion SKIN: [No rashes or lesions.] NEURO: [Alert and oriented x 3. No gross focal sensory or strength deficits.] PSYCH: Normal affect Course Vital Signs Vital signs: Vital Signs Temperature 97.3 F L 09/13/22 03:45 Pulse Rate 75 09/13/22 03:45 Respiratory Rate 18 09/13/22 03:45 Blood Pressure 145/94 H 09/13/22 03:45 Pulse Oximetry 100 09/13/22 03:45 Oxygen Delivery Room Air 09/13/22 03:45 Temperature 97.3 F L 09/13/22 03:45 Pulse Rate 75 09/13/22 03:45 Respiratory Rate 18 09/13/22 03:45 Blood Pressure 145/94 H 09/13/22 03:45 Pulse Oximetry 100 09/13/22 03:45 Oxygen Delivery Room Air 09/13/22 03:45 Medical Decision Making [facility] Narrative Medical decision making narrative: 37-year-old male presenting with left ear pain, vital signs stable, on exam he does have some purulent discharge left ear, I suspect likely acute otitis media with rupture eardrum, I started him on antibiotics with a dose here, and have given him follow-up to ENT. Return precautions discussed. He reports agreement with the plan, family member at bedside. Vital Signs Vital Signs: Vital Signs Temperature 97.3 F L 09/13/22 03:45 Pulse Rate 75 09/13/22 03:45 Respiratory Rate 18 09/13/22 03:45 Blood Pressure 145/94 H 09/13/22 03:45 Pulse Oximetry 100 09/13/22 03:45 Oxygen Delivery Room Air 09/13/22 03:45 Temperature 97.3 F L 09/13/22 03:45 Pulse Rate 75 09/13/22 03:45 Respiratory Rate 18
[2022-09-13] MEDS: KETOROLAC 30 MG/ML VIAL (*BKC) IM (04:02)
[2022-09-13] MEDS: AMOXICILLIN/CLAVULANATE K 875-125 MG TAB 1 TABLET PO (04:02)
[2022-09-13 04:08] VITALS: BP 125/86; PULSE 89; RESP 17; O2SAT 99
== END 2022-09-13 04:09 | disposition home or self-care (01) ==
PROVIDERS: Emergency Provider Emergency Medicine; PCP Emergency Medicine
DX: H66.92 Otitis media, unspecified, left ear (principal); F17.210 Nicotine dependence, cigarettes, uncomplicated
CPT/HCPCS: 96372; 99283; A9270; J1885

== ENCOUNTER 2022-12-04 02:42 | Emergency (ER) | payer BC, OTHER, SELFPAY ==
--- NOTE | ~2022-12-04 | CT_ITS ---
CT of the Abdomen and Pelvis: Indication: Abdominal pain Technique: 2.5 mm axial scans were obtained through the abdomen and pelvis following intravenous adm inistration of 100 cc of Omnipaque 350. Dose reduction technique was used on this scan by utilizing a utomated exposure control and iterative reconstruction technique. The dose-length product (DLP) was 5 90.02 mGy-cm. COMPARISON: 12/31/2021 Findings: Scans through the lung bases are unremarkable. Stable small hepatic cyst noted. Cholecystectomy clips are present. The spleen, pancreas, adrenals an d kidneys are within normal limits. No evidence of aortic aneurysm. No lymphadenopathy. No bowel obstruction or bowel wall thickening. There is no evidence to suggest acute appendicitis. Images through the pelvis were performed. Urinary bladder unremarkable. Prostate gland and seminal ve sicles are unremarkable. No ascites. Impression: No significant abnormalities seen. Reviewed, dictated and finalized at [facility]. Impression: No significant abnormalities seen.
[2022-12-04 02:50] VITALS: BP 151/99; PULSE 65; RESP 20; TEMP 36.6; O2SAT 100
--- NOTE | 2022-12-04 04:24 | ED.ABDPAIN ---
HPI - Abdominal Pain General Chief Complaint: Abdominal Pain Stated Complaint: abd pain, dark stool Time Seen by Provider: 12/04/22 03:18 History of Present Illness HPI narrative: Patient had his gallbladder removed earlier this year. He has been doing well until this week. Has had persistent right upper quadrant abdominal discomfort. Drink a lot of Pepto-Bismol and then had black stools. He has had persistent epigastric pain along with nausea. Decreased appetite. He was pulling a pallet of bottles towards him at work and this worsened his pain. He is accompanied by his friend who contributes to the history. Patient denies fevers and chills. Related Data Allergies Allergy/AdvReac Type Severity Reaction Status Date / Time No Known Allergies Allergy Verified 09/13/22 03:49 Review of Systems Review of Systems: Review of systems normal except what is documented in the [facility] Past Medical History Medical History History of illicit drug use Remote history of IV drug use Tobacco abuse Surgical History Surgical History Hx laparoscopic cholecystectomy 01/01/22 No pertinent past surgical history Social History Social History Smoking packs per day: 1 Smoking cigarettes per day: 20.0 Years smoked: 15 Smoking pack-years: 15.00 Smoking status: Current every day smoker Tobacco type: cigarettes Alcohol intake: never Substance use: former Substance use type: amphetamines and IV drugs Lack of Transportation: No Lack of Food: Never True Current Housing: I Have Housing Concerned About Future Housing: Decline to Answer Difficulty Paying Gas/Electric Bills: Decline to Answer Difficulty Paying for Meds: Decline to Answer Currently Unemployed: Decline to Answer Education: Trade/Vocational Certificate Difficulty w/ Childcare or Family Care: No Gender identity (if verbalized by the patient): Male Sexual Orientation (if Verbalized by the Patient): Straight or Heterosexual Spiritual care concerns: No Exam Narrative: GENERAL: Well-appearing, well-nourished, and in no acute distress. HEAD: Normocephalic, atraumatic. EYES: PERRLA and EOMI. ENT: Nares clear, no rhinorrhea or epistaxis. Mucous membranes moist. NECK: Supple. CHEST: Clear to auscultation. No respiratory distress. HEART: Regular rate and rhythm. ABDOMEN: Soft, nontender, nondistended. EXTREMITIES: Normal range of motion. No edema. SKIN: Warm, dry, no rash. NEURO: No focal deficits. Alert and oriented x3. PSYCH: Normal mood and affect. Course Course Emergency Course: Differential diagnosis includes but not limited to gastroenteritis choledocholithiasis pancreatitis hepatitis Patient had gallbladder removed however common bile duct stones can occur Vital Signs Vital signs: Vital Signs Temperature 36.6 C 12/04/22 02:50 Pulse Rate 65 12/04/22 02:50 Respiratory Rate 20 12/04/22 02:50 Blood Pressure 151/99 H 12/04/22 02:50 Pulse Oximetry 100 12/04/22 02:50 Oxygen Delivery Room Air 12/04/22 02:50 Temperature 36.6 C 12/04/22 02:50 Pulse Rate 70 12/04/22 05:54 Respiratory Rate 16 12/04/22 05:54 Blood Pressure 136/95 H 12/04/22 05:54 Pulse Oximetry 98 12/04/22 05:54 Oxygen Delivery Room Air 12/04/22 02:50 MDM - Abdominal Pain MDM Narrative Medical decision making narrative: CT scan ordered and unremarkable for acute findings Labs including CBC CMP and lipase ordered and grossly unremarkable. Possible pulled abdominal wall muscle versus gastritis. Will DC to home, patient feeling better. Abdomen nontender Lab Data 12/04/22 03:12 12/04/22 05:14 Labs: Lab Results 12/04/22 12/04/22 Range/Units 03:12 05:14 WBC Pending RBC Pending Hgb Pen
[2022-12-04] MEDS: FAMOTIDINE 20 MG/2 ML VIAL IV PUSH (04:39)
[2022-12-04] MEDS: KETOROLAC 15 MG/ML VIAL (*BKC) IV PUSH (04:39)
[2022-12-04] MEDS: ONDANSETRON INJ 4 MG/2 ML VIAL IV PUSH (04:40)
[2022-12-04] MEDS: diphenhydrAMINE HCl CAP 25 MG CAPSULE 50 MG PO (05:13)
[2022-12-04 05:30] LABS: Alanine Aminotransferase 27 U/L (6-50); Albumin Level 4.3 g/dL (3.5-5.1); Alkaline Phosphatase 107 U/L (38-126); Anion Gap 7 mmol/L (8-16); Aspartate Amino Transferase 25 U/L (17-59); Bilirubin,Total 0.5 mg/dL (0.2-1.3); Blood Urea Nitrogen 15 mg/dL (9-20); Calcium 9.7 mg/dL (8.4-10.2); Carbon Dioxide 28 mmol/L (22-30); Chloride 103 mmol/L (98-107); Estimated CRCL calculation 108 ml/min; Estimated Glomerular Filt Rate > 60; Glucose 78 mg/dL (65-110); Lipase 177 U/L (23-300); Sodium 138 mmol/L (137-145)
[2022-12-04 05:54] VITALS: BP 136/95; PULSE 70; RESP 16; O2SAT 98
[2022-12-04 06:42] LABS: Basophils Absolute Auto 0.1 K/mm3 (0.0-0.1); Basophils Percent Auto 0.7 % (0.2-1.2); Eosinophils Absolute Auto 0.7 K/mm3 (0-0.3); Eosinophils Percent Auto 8.1 % (0-4.4); Hematocrit 45.3 % (42.0-52.0); Hemoglobin 15.5 g/dL (14.0-18.0); Immature Granulocyte Absolute 0.03 K/mm3 (0.00-0.031); Immature Granulocyte Percent A 0.4 % (0-0.5); Lymphocytes Absolute Auto 3.65 K/mm3 (0.9-3.2); Mean Corpuscular HGB Conc 34.2 g/dl (32-36); Mean Corpuscular Hemoglobin 30.6 pg (26-34); Mean Corpuscular Volume 89.5 fl (80-100); Monocytes Absolute Auto 0.6 K/mm3 (0.1-0.6); Monocytes Percent Auto 7.3 % (2.6-8.5); Neutrophils Absolute Auto 3.1 K/mm3 (1.3-6.7); Neutrophils Percent Auto 38.5 % (45.5-73.1); Platelet Count Result 344 k/mm3 (150-375); Red Blood Count 5.06 M/mm3 (4.6-6.20); Red Cell Distribution Width 12.6 % (11.5-14.5); White Blood Count 8.1 K/mm3 (4.5-10.0)
== END 2022-12-04 07:02 | disposition home or self-care (01) ==
PROVIDERS: Emergency Provider Emergency Medicine
DX: R10.11 Right upper quadrant pain (principal); Z90.49 Acquired absence of other specified parts of digestive tract; F17.210 Nicotine dependence, cigarettes, uncomplicated
CPT/HCPCS: 36415; 74177; 80053; 83690; 85025; 96374; 96375; 99284; A9270; J1885; J2405; Q9967

== ENCOUNTER 2023-09-26 05:43 | Emergency (ER) | payer SELFPAY ==
[2023-09-26 05:45] VITALS: BP 107/68; PULSE 139; RESP 30; TEMP 36.5; O2SAT 100
--- NOTE | 2023-09-26 05:57 | ECG_ITS ---
Test Date: 2023-09-26 06:20:38 Measurements Intervals [place] Rate: 129 P: 50 [place]: 135 QRS: 58 QRSD: 101 T: 40 QT: 306 QTc: 449 Interpretive Statements SINUS TACHYCARDIA ABNORMAL ECG Electronically Signed On 09-26-2023 06:24:04 CDT by Charles Haque D.O.
--- NOTE | 2023-09-26 05:57 | PC.NURSE ---
Patient admits to Meth use yesterday.
--- NOTE | 2023-09-26 06:09 | ED.ALLEREA ---
HPI - Allergic Reaction General Chief complaint: Allergic Reaction Stated complaint: Possible allergic reaction to banana Time Seen by Provider: 09/26/23 05:56 Source: patient and EMS Mode of arrival: EMS Limitations: no limitations and intoxication (recent drug use) History of Present Illness HPI narrative: Patient presents with concern for an allergic reaction after eating bananas and fruit cocktail. He believes it was the banana. He started having an itchy rash and with red skin. Notes that his stomach is hurting as well. EMS was concerned for respiratory involvement as they heard wheezes on auscultation. They administered Solu-Medrol 125 mg, 0.5 mg of epinephrine, and gave an albuterol treatment. Patient states he had taken 2 25 mg tablets of Benadryl prior to their arrival. He also endorses to them recent methamphetamine use. Denies any underlying respiratory condition such as asthma or COPD. Denies N/V/D. Patient has other allergies include nuts and trees. Related Data Allergies Allergy/AdvReac Type Severity Reaction Status Date / Time banana Allergy Severe Anaphylaxis Uncoded 09/26/23 07:48 nuts Allergy Unknown Uncoded 09/26/23 08:47 trees Allergy Unknown Uncoded 09/26/23 08:47 PMFSH Past Medical History Medical History History of illicit drug use Remote history of IV drug use Tobacco abuse Surgical History Surgical History Hx laparoscopic cholecystectomy 01/01/22 No pertinent past surgical history Social History Social History Smoking packs per day: 1 Smoking cigarettes per day: 20.0 Years smoked: 15 Smoking pack-years: 15.00 Smoking status: Current every day smoker Tobacco type: cigarettes Alcohol intake: never Substance use: former Substance use type: amphetamines and IV drugs Lack of Transportation: No Lack of Food: Never True Current Housing: I Have Housing Concerned About Future Housing: Decline to Answer Difficulty Paying Gas/Electric Bills: Decline to Answer Difficulty Paying for Meds: Decline to Answer Currently Unemployed: Decline to Answer Education: Trade/Vocational Certificate Difficulty w/ Childcare or Family Care: No Gender identity (if verbalized by the patient): Male Sexual Orientation (if Verbalized by the Patient): Straight or Heterosexual Spiritual care concerns: No Exam Narrative: GENERAL: well-nourished, in moderate acute distress, itchingn and writhing around in the bed HEAD: Normocephalic, atraumatic. EYES: injected, non icteric ENT: Nares clear, no rhinorrhea or epistaxis. NECK: Supple. CHEST: Speaking in full sentences but tachypneic. No appreciable wheezes. HEART: Tachycardic rate and rhythm. . ABDOMEN: Soft, nondistended. EXTREMITIES: Normal range of motion. No edema. SKIN: Warm, dry. Diffuse erythematous maculopapular rash across abdomen and torso with some areas of urticaria. NEURO: No focal deficits. Alert and oriented x3. PSYCH: Agitated/anxious mood and affect , complaining of the smell of mildew on the pillow Course Vital Signs Vital signs: Vital Signs Temperature 97.7 F 09/26/23 05:45 Pulse Rate 139 H 09/26/23 05:45 Respiratory Rate 30 H 09/26/23 05:45 Blood Pressure 107/68 09/26/23 05:45 Pulse Oximetry 100 09/26/23 05:45 Oxygen Delivery Room Air 09/26/23 05:45 Temperature 97.7 F 09/26/23 05:45 Pulse Rate 116 H 09/26/23 07:20 Respiratory Rate 19 09/26/23 07:20 Blood Pressure 114/80 09/26/23 07:20 Pulse Oximetry 94 09/26/23 07:21 Oxygen Delivery Nasal Cannula 09/26/23 07:21 Oxygen Flow Rate 2 09/26/23 07:21 MDM - Allergic Reaction MDM Narrative Medical decision making narrative: The patient demonstrated signs of symptoms of anaphylaxis: watery eyes, tachypnea, wheezing (for EMS)
[2023-09-26] MEDS: SODIUM CHLORIDE 0.9% IV 1,000 ML 999 ML IV CONT ×3 (06:17→07:09)
[2023-09-26] MEDS: LORazepam INJ (*CRX) 2 MG/ML VIAL 1 MG IV PUSH (06:18)
[2023-09-26] MEDS: MORPHINE SULFATE (*CRX) 4 MG/ML INJ IV PUSH (06:19)
[2023-09-26] MEDS: FAMOTIDINE 20 MG TABLET PO (06:20)
[2023-09-26] MEDS: diazePAM INJ (*CRX) 10 MG/2 ML SYRINGE 5 MG IV PUSH (06:57)
[2023-09-26] MEDS: hydrOXYzine HCL 25 MG TABLET PO (06:58)
[2023-09-26] MEDS: diphenhydrAMINE HCl INJ 50 MG/ML VIAL 25 MG IV PUSH (06:58)
[2023-09-26 07:07] VITALS: O2SAT 96
[2023-09-26 07:20] VITALS: BP 114/80; PULSE 116; RESP 19; O2SAT 99
[2023-09-26 07:21] VITALS: O2SAT 94
[2023-09-26 09:35] VITALS: BP 120/94; PULSE 95; RESP 16; O2SAT 95
[2023-09-26 11:32] VITALS: BP 109/81; PULSE 97; RESP 20; O2SAT 99
== END 2023-09-26 11:35 | disposition home or self-care (01) ==
PROVIDERS: Emergency Provider Student in an Organized Health Care Education/Training Program
DX: T78.04XA Anaphylactic reaction due to fruits and vegetables, initial encounter (principal); F15.90 Other stimulant use, unspecified, uncomplicated; F17.210 Nicotine dependence, cigarettes, uncomplicated; Z90.49 Acquired absence of other specified parts of digestive tract; R00.0 Tachycardia, unspecified
CPT/HCPCS: 93005; 96361; 96374; 96375; 99284; A9270; J1200; J2060; J2270; J3360; J7030

== ENCOUNTER 2024-08-14 16:24 | Emergency (ER) | payer BC, MEDICAID, SELFPAY ==
[2024-08-14] VITALS (8 sets, daily range): BP systolic 120–143; BP diastolic 87–102; PULSE 77–88; RESP 16–28; TEMP 36.6; O2SAT 96–99
--- NOTE | ~2024-08-14 | CT_ITS ---
History: Remote history of a fall PROCEDURE: CT cervical spine without intravenous contrast. COMPARISON: 09/21/2019 TECHNIQUE: Multiple contiguous axial images of the cervical spine were performed without the administration of i ntravenous contrast. DLP: 324 mGy-cm FINDINGS: Straightening and slight reversal of the normal curvature of the cervical spine is identified, likely muscular in origin. No acute fractures are present. The bilateral lung apices are unremarkable. No soft tissue abnormality is present. The airway is unremarkable. Impression: Straightening and slight reversal of the normal curvature of the cervical spine, likely muscular in o rigin. No acute fracture. Reviewed, dictated and finalized at location A. Impression: Straightening and slight reversal of the normal curvature of the cervical spine , likely muscular in origin. No acute fracture.
--- NOTE | ~2024-08-14 | CT_ITS ---
History: Remote history of a fall PROCEDURE: CT head without contrast. COMPARISON: 09/21/2019 TECHNIQUE: Axial imaging of the head performed from the skull base to the vertex without IV contrast. Sagittal a nd coronal reformations obtained. DLP: 605 mGy-cm FINDINGS: The ventricles are normal in size, shape and position. There is no mass, mass effect or midline shift. There is no abnormal extra-axial fluid collection or intracranial hemorrhage. Visualized paranasal sinuses are clear. The mastoid air cells are well aerated. No acute displaced fractures within the overlying cranium. Impression: No acute intracranial hemorrhage or suspicious mass effect. Reviewed, dictated and finalized at location A. Impression: No acute intracranial hemorrhage or suspicious mass effect.
--- OUTSIDE RECORDS SUMMARY | 2024-08-14 16:26 | XMS_ITS | Data Portability ---
Author Organization [facility] [employer] , [facility] Address [address] [facility] [place] [address] Assessment No assessment recorded. Plan of Treatment Reminders Order Date Submit Date Provider Last Modified By Organization Details Last Modified Time Details Appointments None record ed. Lab None record ed. Referral None record ed. Procedures None record ed. Surgeries None record ed. Imaging None record ed. Medication Orders None record ed. Patient TargetsNo targets recorded. Patient InstructionsNo instructions recorded. Reason for Referral None Reported. Procedures Surgical History Date Name Laterality Status Provider Name and Address Organization Details Recorded Time [facility] Send Out Template DOT completed ERIC CASILLAS [facility] 12/29/2023 08:52:18 Imaging Results None recorded. Procedure Notes None recorded. Medical Equipment None Reported. Vitals None Recorded Social History None recorded. Functional Status None recorded. Mental Status None recorded. Family History Nothing Reported. Medical History No medical history recorded. Past Encounters Encounter ID Performer Location Encounter Start Date Encounter Closed Date Diagnosis/Indication Diagnosis SNOMED-CT Code Diagnosis ICD10 Code Diagnosis Note [id number] [place] [address] Trixie Hurtado [address] [place] [id number] 12/29/2023 08:39:02 12/29/2023 08:55:29 History and physical examination, occupation 895896067 Z02.1 Health Concerns Section Related Observation LastModified by Organization Detai ls LastModified Time None Recorded Concern Status LastModified by Organization Details LastModified Time None Recorded Advance Directives Directive None Recorded Payers Insurance Date Sequence Insurance Name Policy Number Policy Burrell Covered Member ID Burrell Member ID Guarantor Name 12/29/2023 OC-Aunt [employer] JOIE Celis 12/29/2023 OC-ESCREEN [employer] JOIE Celis
--- NOTE | 2024-08-14 16:50 | ED_ITS ---
HPI - Head Injury General Chief complaint: Head Injury Stated complaint: hit head on shelf, neck pain, ear pain Time Seen by Provider: 08/14/24 16:37 History of Present Illness HPI Narrative: 39-year-old male presenting to the emergency department after a closed head injury. Patient appears intoxicated but states that he did not have any significant amounts to drink. Does endorse illicit substances previously. States that he fell asleep at a desk and woke up startled and fell towards the right side where he hit his head and neck against a shelf and fell down. Does not use blood thinners. Patient's family member at bedside states that he has been acting somewhat confused since this happened this morning. Was otherwise in his normal state of health. Denies any chest pain, abdominal pain, back pain, fever, chills. No weakness or paresthesias in the arms or legs. Related Data Allergies Allergy/AdvReac Type Severity Reaction Status Date / Time banana Allergy Severe Anaphylaxis Uncoded 08/14/24 16:24 nuts Allergy Unknown Uncoded 08/14/24 16:24 trees Allergy Unknown Uncoded 08/14/24 16:24 Review of Systems 2 Review of Systems: As reviewed above in HPI PMFSH Past Medical History Medical History Tobacco abuse History of illicit drug use Remote history of IV drug use Surgical History Surgical History Hx laparoscopic cholecystectomy 01/01/22 No pertinent past surgical history Social History Social History Smoking packs per day: 1 Smoking cigarettes per day: 20.0 Years smoked: 15 Smoking pack-years: 15.00 Smoking status: Current every day smoker Tobacco type: cigarettes Alcohol intake: never Substance use: former Substance use type: amphetamines and IV drugs Lack of Transportation: No Lack of Food: Never True Current Housing: I Have Housing Concerned About Future Housing: Decline to Answer Difficulty Paying Gas/Electric Bills: Decline to Answer Difficulty Paying for Meds: Decline to Answer Currently Unemployed: Decline to Answer Education: Trade/Vocational Certificate Difficulty w/ Childcare or Family Care: No Gender identity (if verbalized by the patient): Male Sexual Orientation (if Verbalized by the Patient): Straight or Heterosexual Spiritual care concerns: No Exam 2 Narrative: GENERAL: [Well-appearing, well-nourished, and in no acute distress.] HEAD: [Normocephalic, atraumatic.] EYES: [PERRLA and EOMI.] ENT: Nares clear, no rhinorrhea or epistaxis. Mucous membranes moist. No signs of tympanic membrane rupture or erythema, bleeding NECK: Supple. C-collar in place CHEST: [Clear to auscultation. No respiratory distress.] HEART: [Regular rate and rhythm]. No murmur heard. [Normal peripheral pulses.] ABDOMEN: [Soft, nondistended], [nontender], [No rigidity or guarding] EXTREMITIES: Normal range of motion. [No edema.] SKIN: Warm, dry, no rash. NEURO: [No focal deficits]. Alert and oriented [x3.] Moving all extremities, no sensation or strength deficits. No facial asymmetry. Appears intoxicated. PSYCH: [Normal mood and affect.] Course Vital Signs Vital signs: Vital Signs Pulse Rate 88 08/14/24 16:30 Respiratory Rate 19 08/14/24 16:30 Temperature 36.6 C 08/14/24 16:35 Pulse Rate 78 08/14/24 19:10 Respiratory Rate 16 08/14/24 19:10 Blood Pressure 124/90 08/14/24 19:10 Pulse Oximetry 98 08/14/24 19:10 Oxygen Delivery Room Air 08/14/24 16:35 MDM - Head Injury MDM Narrative Medical decision making narrative: 39-year-old male presenting for closed head injury and some confusion. Patient states that he woke up while falling sleep at his desk and got startled and felt sources right-sided where he hit his head neck against the ground. states that he has been acting confused since this happened but patient does appear intoxicated. Patient denies any substance use today but states that he has been using some illicit substances very recently. Vital signs reassuring, he is not any acute distress, has no neurological deficits on examination. No visible signs of traumatic injury externally. CT of the head and cervical spine were obtained. Basic laboratory studies and alcohol level ordered. He is given Toradol for analgesia and re-evaluated. CT head and CT cervical spine were negative for acute osseous abnormalities or intracranial pathology. C-collar was removed. Patient's alcohol level is negative but his urine drug screen came back positive for methamphetamine likely explaining his intoxication combined with potential concussion. Patient is hemodynamically stable, ambulatory and stable for discharge home at this time with return precautions and PCP follow-up instructions. Medical Records Attestation: I reviewed the patient's medical records. Lab Data Attestation: I reviewed the patient's lab results. 08/14/24 17:15 08/14/24 17:15 Labs: Lab Results 08/14/24 08/14/24 Range/Units 17:15 18:02 WBC 6.0 (4.5-10.0) K/mm3 RBC 4.81 (4.6-6.20) M/mm3 Hgb 14.6 (14.0-18.0) g/dL Hct 42.2 (42.0-52.0) % MCV 87.7 (80-100) fl MCH 30.4 (26-34) pg MCHC 34.6 (32-36) g/dl RDW 12.9 (11.5-14.5) % Plt Count 296 (150-375) k/mm3 MPV 9.1 (7.4-10.4) fl Immature Gran % (Auto) 0.2 (0-0.5) % Neut % (Auto) 40.2 L (45.5-73.1) % Lymph % (Auto) 39.3 (18.3-44.2) % [place] % (Auto) 9.9 H (2.6-8.5) % Eos % (Auto) 9.4 H (0-4.4) % Baso % (Auto) 1.0 (0.2-1.2) % Lymph # (Auto) 2.34 (0.9-3.2) K/mm3 [place] # (Auto) 0.6 (0.1-0.6) K/mm3 Eos # (Auto) 0.6 H (0-0.3) K/mm3 Baso # (Auto) 0.1 (0.0-0.1) K/mm3 Abs Immat Gran (auto) 0.01 (0.00-0.031) K/mm3 Absolute Neuts (auto) 2.4 (1.3-6.7) K/mm3 Absolute Nucleated RBC 0.000 (0.0-0.012) K/mm3 Nucleated RBC % 0.0 (0.0-0.2) % Sodium 139 (137-145) mmol/L Potassium 3.5 (3.4-5.0) mmol/L Chloride 107 (98-107) mmol/L Carbon Dioxide 24 (22-30) mmol/L Anion Gap 8 (4-12) mmol/L BUN 11 (9-20) mg/dL Creatinine 0.73 (0.7-1.3) mg/dL Estim Creat Clear Calc 115 ml/min Estimated GFR > 60 (59 - ) Glucose 80 (65-110) mg/dL Calcium 8.6 (8.4-10.2) mg/dL Total Bilirubin 0.3 (0.2-1.3) mg/dL AST 45 (17-59) U/L ALT 40 (6-50) U/L Alkaline Phosphatase 108 (38-126) U/L Total Protein 6.5 (6.3-8.2) g/dL Albumin 3.6 (3.5-5.1) g/dL Urine Opiates Screen Negative (Negative) Urine Methadone Screen Negative (Negative) Ur Barbiturates Screen Negative (Negative) Ur Phencyclidine Scrn Negative (Negative) Ur Amphetamine Screen Positive A (Negative) U Benzodiazepines Scrn Negative (Negative) Urine Cocaine Screen Negative (Negative) U Cannabinoids Screen Negative (Negative) Ethyl Alcohol < 10 (<10) mg/dL Imaging Data Attestation: I personally reviewed and interpreted this imaging study as follows: My impression: Impressions Head CT 08/14/24 17:08 Impression: No acute intracranial hemorrhage or suspicious mass effect. Cervical Spine CT 08/14/24 17:09 Impression: Straightening and slight reversal of the normal curvature of the cervical spine, likely muscular in origin. No acute fracture. Discharge Plan Discharge Clinical Impression: CHI (closed head injury), Concussion, Methamphetamine use Patient Disposition: Home Condition: Stable Instructions: Antibiotic Form, Concussion (ED), Post Concussion Syndrome (ED) Additional Instructions: Your CT scans were reassuring without any signs of acute injury. No brain bleeding or swelling, your symptoms are consistent with a concussion. You did test positive for methamphetamines so this could also contribute to your mental status. Refrain from using drugs in the future and follow-up with regular doctor. Take Tylenol and ibuprofen for aches and pains. Return with any emergencies. Patient Language: [place] Prescriptions: No Action amoxicillin-pot clavulanate 875-125 mg tablet 1 tablet PO Q12H Qty: 20 0RF famotidine [Pepcid] 40 mg tablet 40 mg PO DAILY Qty: 7 0RF ondansetron 4 mg tablet,disintegrating 4 mg PO Q8H PRN (Reason: nausea and vomiting) Qty: 20 0RF prednisone 20 mg tablet 20 mg PO BID 4 Days Qty: 8 0RF Rx Instructions: start 09/26; first dose given in ED epinephrine 0.3 mg/0.3 mL auto-injector 0.3 mg IM Q5-15M PRN (Reason: anaphylaxis) Qty: 2 0RF Rx Instructions: do not exceed 3 doses per episode Follow-up/Referrals: PHYSICIAN,REPLANTING MACHINE OPERATOR [Primary Care Provider] - Time of Disposition: 18:56
[2024-08-14] MEDS: KETOROLAC 15 MG/ML VIAL (*BKC) IV PUSH (17:17)
[2024-08-14 17:27] LABS: Basophils Absolute Auto 0.1 K/mm3 (0.0-0.1); Eosinophils Absolute Auto 0.6 K/mm3 (0-0.3); Eosinophils Percent Auto 9.4 % (0-4.4); Hematocrit 42.2 % (42.0-52.0); Hemoglobin 14.6 g/dL (14.0-18.0); Immature Granulocyte Absolute 0.01 K/mm3 (0.00-0.031); Immature Granulocyte Percent A 0.2 % (0-0.5); Lymphocytes Absolute Auto 2.34 K/mm3 (0.9-3.2); Lymphocytes Percent Auto 39.3 % (18.3-44.2); Mean Corpuscular HGB Conc 34.6 g/dl (32-36); Mean Corpuscular Hemoglobin 30.4 pg (26-34); Mean Corpuscular Volume 87.7 fl (80-100); Mean Platelet Volume 9.1 fl (7.4-10.4); Monocytes Absolute Auto 0.6 K/mm3 (0.1-0.6); Monocytes Percent Auto 9.9 % (2.6-8.5); Neutrophils Absolute Auto 2.4 K/mm3 (1.3-6.7); Neutrophils Percent Auto 40.2 % (45.5-73.1); Platelet Count Result 296 k/mm3 (150-375); Red Blood Count 4.81 M/mm3 (4.6-6.20); Red Cell Distribution Width 12.9 % (11.5-14.5)
[2024-08-14 17:38] LABS: Alanine Aminotransferase 40 U/L (6-50); Albumin Level 3.6 g/dL (3.5-5.1); Alkaline Phosphatase 108 U/L (38-126); Anion Gap 8 mmol/L (4-12); Aspartate Amino Transferase 45 U/L (17-59); Bilirubin,Total 0.3 mg/dL (0.2-1.3); Blood Urea Nitrogen 11 mg/dL (9-20); Calcium 8.6 mg/dL (8.4-10.2); Carbon Dioxide 24 mmol/L (22-30); Chloride 107 mmol/L (98-107); Estimated CRCL calculation 115 ml/min; Estimated Glomerular Filt Rate > 60; Ethanol < 10 mg/dL (<10); Glucose 80 mg/dL (65-110); Potassium 3.5 mmol/L (3.4-5.0); Sodium 139 mmol/L (137-145); Total Protein 6.5 g/dL (6.3-8.2)
[2024-08-14 18:25] LABS: Barbiturate Screen Urine Negative (Negative); Benzodiazepines Screen Urine Negative (Negative); Cannabinoid Screen Urine Negative (Negative); Cocaine Screen Urine Negative (Negative); Methadone Screen Urine Negative (Negative); Opiate Screen Urine Negative (Negative); Phencyclidine Screen Urine Negative (Negative)
[2024-08-14 18:53] LABS: Amphetamine Screen Urine Positive (Negative)
== END 2024-08-14 19:10 | disposition home or self-care (01) ==
PROVIDERS: Emergency Provider Student in an Organized Health Care Education/Training Program
DX: S06.0X0A Concussion without loss of consciousness, initial encounter (principal); F15.90 Other stimulant use, unspecified, uncomplicated; F17.210 Nicotine dependence, cigarettes, uncomplicated; Z90.49 Acquired absence of other specified parts of digestive tract; W18.09XA Striking against other object with subsequent fall, initial encounter
CPT/HCPCS: 36415; 70450; 72125; 80053; 80307; 82077; 85025; 96374; 99284; J1885